=== PATIENT | male | born 1985 | race Caucasian/White ===

== ENCOUNTER 2020-06-04 15:15 | Outpatient (CLI) | payer OTHER, SELFPAY ==
[2020-06-04 16:20] LABS: Alanine Aminotransferase 38 U/L (16-63); Albumin Level 3.9 g/dL (3.4-5.0); Alkaline Phosphatase 125 U/L (46-116); Anion Gap 12.4 mmol/L (7-16); Aspartate Amino Transferase 36 U/L (15-37); Bilirubin,Total 0.8 mg/dL (0.00-1.00); Blood Urea Nitrogen 19 mg/dL (7-18); Calcium 8.9 mg/dL (8.5-10.1); Carbon Dioxide 27 mmol/L (21-32); Chloride 104 mmol/L (98-108); Estimated Glomerular Filt Rate > 60; Glucose 119 mg/dL (70-99); Magnesium 1.9 mg/dL (1.8-2.4); Osmolality Calculated 291 mOsm/kg (285-295); Potassium 4.4 mmol/L (3.5-5.1); Sodium 139 mmol/L (136-145); Total Protein 7.3 g/dL (6.4-8.2)
== END 2020-06-04 15:16 | disposition home or self-care (01) ==
LOC: CHSLAB 15:17
PROVIDERS: PCP Nurse Practitioner Family; Visit Provider Nurse Practitioner Family
DX: R42 Dizziness and giddiness (principal); E83.42 Hypomagnesemia
CPT/HCPCS: 36415; 80053; 83735

== ENCOUNTER 2020-06-11 11:11 | Emergency (ER) | payer OTHER, SELFPAY ==
--- NOTE | ~2020-06-11 | XR_ITS ---
EXAMINATION: XR chest 2V 06/11/2020 11:32 INDICATION: Chest pressure PROCEDURE: 2 view chest COMPARISON: Comparison to multiple prior studies sequentially, with oldest reviewed study dated 11/2016. FINDINGS: The lungs are clear. The cardiomediastinal silhouette is within normal limits. There are no pleural effusions. There is no pneumothorax suspected. IMPRESSION: 1: NO ACUTE CARDIOPULMONARY DISEASE. Reviewed, dictated and finalized at location B.
[2020-06-11 11:13] VITALS: BP 147/87; PULSE 76; RESP 18; TEMP 37.2; O2SAT 100
--- NOTE | 2020-06-11 11:13 | ECG_ITS ---
Measurements Intervals [place] Rate: 62 P: 12 [place]: 159 QRS: 44 QRSD: 98 T: 24 QT: 371 QTc: 377 Interpretive Statements SINUS RHYTHM WITH SINUS ARRHYTHMIA EARLY PRECORDIAL R/S TRANSITION BORDERLINE ECG Electronically Signed On 06-11-2020 11:39:45 CDT by Ramirez Sims D.O.
--- NOTE | 2020-06-11 11:13 | ED.CHESTPAIN ---
HPI - Chest Pain General Chief Complaint: Chest Pain Stated Complaint: chest tightning couldnt hardley breath Time Seen by Provider: 06/11/20 11:13 Source: patient Mode of arrival: ambulatory Limitations: no limitations History of Present Illness HPI narrative: 34-year-old man with a history of hypertension comes in today complaining of a 45 second episode of tightness in his chest neck and head, nausea while riding a mower this am. He has no symptoms at present. he denies prior similar episodes. He states he had an echo cardiogram about 7 years back does not recall why. complaint: chest discomfort (tightness) Onset (ago): minute(s) (30) Timing of current episode: episodic Prior episodes: No Onset: during exertion Pain location: substernal Pain radiation: neck (and head) Severity: moderate Quality: tightness Relieving factors: nothing Exacerbating factors: nothing Associated symptoms: nausea Treatment prior to arrival: none Risk Factors Coronary artery disease risk factors: hypertension Thoracic aortic dissection risk factors: none Related Data Home Medications Medication Instructions Recorded Confirmed lisinopril 10 mg PO DAILY 06/11/20 06/11/20 Allergies Allergy/AdvReac Type Severity Reaction Status Date / Time No Known Drug Allergies Allergy Mild Verified 06/04/20 12:07 Review of Systems Constitutional: Constitutional: Denies chills, Denies fever(s) and Denies weakness Eyes: Eyes: Denies change in vision and Denies photophobia ENT: Denies dysphagia, Denies nasal congestion and Denies sore throat Cardiovascular: Cardiovascular: Reports as per HPI Respiratory: Respiratory: Denies cough, Denies dyspnea and Denies wheezing Gastrointestinal: Gastrointestinal: Denies abdominal pain, Denies diarrhea, Reports nausea and Denies vomiting Musculoskeletal: Musculoskeletal: Denies back pain, Denies arthralgias, Denies joint swelling and Denies muscle cramps Integumentary/Breasts: Skin/Breast: Denies pruritus, Denies erythema and Denies rash Neurologic: Denies vertigo, Denies dizziness and Denies syncope Psychiatric: Psychiatric: Denies anxiety and Denies depression Endocrine: Endocrine: Denies polydipsia and Denies polyuria Hematologic/Lymphatic: Hematologic/Lymphatic: Denies easy bleeding and Denies easy bruising Allergic/Immunologic: Allergic/Immunologic: Denies lip swelling and Denies wheezing PMFSH Past Medical History Medical History Acute upper respiratory infection, unspecified GARRETT (generalized anxiety disorder) Hypertension Social History Social History Smoking status: Never smoker Tobacco type: smokeless tobacco Smokeless tobacco user: chewing tobacco Second hand tobacco smoke exposure: Yes Smoking end date: 11/29/11 Alcohol intake: current Exam Const: General: no acute distress and alert Nutritional Appearance: obese Orientation/consciousness: patient oriented x3 Limitations: no limitations HENMT: Head: normal to inspection Ears: external ears normal, TM's normal bilaterally and EAC's normal Face and sinus: normal facial exam Mouth: Yes moist mucous membranes Throat: posterior oropharynx normal Eyes: Conjunctivae: conjunctivae normal Pupils: Equal, round and reactive pupils present EOM: EOMs intact bilaterally Resp: Effort & Inspection: normal respiratory effort, not labored and no retractions Auscultation: clear to auscultation bilaterally, no crackles, no rales and no rhonchi Cardio: Rate: regular rate Rhythm: regular rhythm Heart sounds: no murmurs GI: Inspection: non-distended Other: nontender Skin: General skin exam: normal color, no jaundice and no pallor Rashes: no rashes Neuro: General: patient oriented x3, moves all extremities, no focal motor deficits and CN's II-XI intact bilaterally Speech: normal speech Gait exam (Neuro): Normal ga
[2020-06-11 11:15] VITALS: PULSE 76
[2020-06-11 11:32] LABS: Basophils Absolute Auto 0.07 K/mm3 (0.00-0.10); Basophils Percent Auto 0.8 % (0.0-1.0); Eosinophils Absolute Auto 0.08 K/mm3 (0.02-0.50); Eosinophils Percent Auto 0.9 % (1.0-6.0); Hematocrit 45.2 % (40.0-54.0); Immature Granulocyte Absolute 0.06 K/mm3 (0.00-0.00); Immature Granulocyte Percent A 0.7 % (0.0-0.0); Lymphocytes Absolute Auto 1.93 K/mm3 (1.10-4.50); Lymphocytes Percent Auto 21.6 % (18.0-42.0); Mean Corpuscular HGB Conc 35.4 g/dL (32.0-36.0); Mean Corpuscular Hemoglobin 31.1 pg (27.0-31.0); Mean Corpuscular Volume 87.8 fL (78.0-102.0); Mean Platelet Volume 10.5 fl (8.7-11.0); Monocytes Absolute Auto 0.77 K/mm3 (0.10-0.90); Monocytes Percent Auto 8.6 % (2.0-11.0); Neutrophils Percent Auto 67.4 % (50.0-70.0); Platelet Count Result 299 K/mm3 (150-420); Red Blood Count 5.15 M/mm3 (4.70-6.10); Red Cell Distribution Width 12.1 % (11.6-14.4)
[2020-06-11] MEDS: ASPIRIN 81 MG CHEWABLE TABLET 324 MG PO (11:35)
[2020-06-11 11:47] LABS: D Dimer 0.19 mg/L (0.19-0.50); INR 1.1; Partial Thromboplastin Time 26.8 SEC (22.3-31.6)
[2020-06-11 11:51] LABS: Alanine Aminotransferase 41 U/L (16-63); Albumin Level 3.9 g/dL (3.4-5.0); Alkaline Phosphatase 128 U/L (46-116); Aspartate Amino Transferase 18 U/L (15-37); Blood Urea Nitrogen 15 mg/dL (7-18); Calcium 9.3 mg/dL (8.5-10.1); Carbon Dioxide 28 mmol/L (21-32); Chloride 101 mmol/L (98-108); Estimated CRCL calculation 100 ml/min; Estimated Glomerular Filt Rate > 60; Glucose 91 mg/dL (70-99); Osmolality Calculated 282 mOsm/kg (285-295); Sodium 136 mmol/L (136-145); Total Protein 7.7 g/dL (6.4-8.2)
[2020-06-11 11:57] LABS: Troponin I < 0.02 ng/mL (0.00-0.056)
[2020-06-11 11:58] LABS: Magnesium 1.7 mg/dL (1.8-2.4)
[2020-06-11 12:08] LABS: Add Urine Microscopic? NO; Appearance Urine Clear (Clear); Bilirubin Urine Negative (Negative); Blood Urine Negative (Negative); Color Urine Yellow (Yellow); Glucose Urine UA Negative (Negative); Ketones Urine Negative (Negative); Leukocyte Esterase Ur Negative LEU/UL (Negative); Nitrate Urine Negative (Negative); Protein Urine Negative (Negative); Urobilinogen Urine 0.2 mg/dL (0.2-1.0); pH Urine 5.5 (5.0-8.0)
[2020-06-11 12:14] VITALS: BP 127/76; PULSE 61; RESP 20; O2SAT 96
[2020-06-11 12:22] LABS: Amphetamine Screen Urine Negative (Negative); Barbiturate Screen Urine Negative (Negative); Benzodiazepines Screen Urine Negative (Negative); Cannabinoid Screen Urine Negative (Negative); Cocaine Screen Urine Negative (Negative); Methadone Screen Urine Negative (Negative); Opiate Screen Urine Negative (Negative); Phencyclidine Screen Urine Negative (Negative)
[2020-06-11 13:15] VITALS: BP 118/69; PULSE 70; RESP 18; O2SAT 96
== END 2020-06-11 13:21 | disposition home or self-care (01) ==
PROVIDERS: Emergency Provider Emergency Medicine; PCP Nurse Practitioner Family
DX: R07.9 Chest pain, unspecified (principal)
CPT/HCPCS: 36415; 71046; 80053; 80307; 81003; 83735; 84484; 85025; 85380; 85610; 85730; 93005; 99284; A9270

== ENCOUNTER 2021-03-14 14:59 | Emergency (ER) | payer OTHER, SELFPAY ==
--- NOTE | 2021-03-14 15:09 | ED.WEAKNESS ---
HPI - Weakness General Chief complaint: Weakness Stated complaint: sluggish,trouble breathing Time Seen by Provider: 03/14/21 15:09 Source: patient Mode of arrival: ambulatory Limitations: no limitations History of Present Illness HPI Narrative: Patient states he has been feeling generally sluggish. He denies any new medications. He denies any other symptoms fever chills nausea vomiting diarrhea constipation black tarry stools chest pain shortness of breath. The only thing he mention was may be a swollen lymph node in his right neck but no sore throat no fever. Complaint: generalized weakness Onset (ago): day(s) (2) Duration: intermittent Location: generalized Migration: none Severity: moderate Relieving factors: none Exacerbating factors: exertion Associated symptoms: denies other symptoms Related Data Home Medications Medication Instructions Recorded Confirmed hydroxyzine HCl 50 mg tablet 50 mg PO QID PRN 02/19/21 03/14/21 Allergies Allergy/AdvReac Type Severity Reaction Status Date / Time No Known Drug Allergies Allergy Mild Unknown Verified 02/19/21 17:07 Review of Systems Review of Systems: All systems reviewed & are unremarkable except as noted in HPI and below PMFSH Past Medical History Medical History (Updated 03/14/21 @ 16:53 by Don Abbott MD) Acute upper respiratory infection, unspecified GARRETT (generalized anxiety disorder) Hypertension Social History Social History Smoking status: Former smoker Tobacco type: smokeless tobacco Smokeless tobacco user: chewing tobacco Second hand tobacco smoke exposure: Yes Smoking end date: 11/29/11 Alcohol intake: current Exam Const: General: healthy appearing and no acute distress Nutritional Appearance: well nourished Orientation/consciousness: patient oriented x3 HENMT: Head: normal to inspection Ears: external ears normal General nose exam: Normal external nose present and Normal nares present Face and sinus: normal facial exam Mouth: Yes moist mucous membranes Throat: posterior oropharynx normal Eyes: Conjunctivae: conjunctivae normal Pupils: Equal, round and reactive pupils present EOM: EOMs intact bilaterally Neck: Neck: normal visual inspection and lymphadenopathy right anterior cervical soft, mobile and tender (mild) Resp: Effort & Inspection: normal respiratory effort Auscultation: clear to auscultation bilaterally, no crackles, no rales, no rhonchi and no wheezes Cardio: Rate: regular rate Rhythm: regular rhythm GI: GI Palp: Yes Soft to palpation and No Tenderness to palpation present (GI) Auscultation: normal bowel sounds Back/Spine/Pelvis: Cervical Spine: cervical ROM normal Thoracic/Lumbar Spine: thoraco-lumbar ROM normal Skin: General skin exam: normal color Neuro: General: patient oriented x3, moves all extremities and no focal motor deficits Speech: normal speech Gait exam (Neuro): Normal gait present Extrem: General: normal to inspection and no clubbing, cyanosis or edema Psych: Appearance: grossly normal and well kempt Mental Status: mental status grossly normal Attitude: cooperative Thought content: Yes Normal thought content present Course Vital Signs Vital signs: Vital Signs Temperature 36.8 C 03/14/21 15:15 Pulse Rate 90 03/14/21 15:15 Respiratory Rate 16 03/14/21 15:15 Blood Pressure 127/80 03/14/21 15:15 Pulse Oximetry 100 03/14/21 15:15 Temperature 36.1 C L 03/14/21 16:56 Pulse Rate 78 03/14/21 16:56 Respiratory Rate 20 03/14/21 16:56 Blood Pressure 122/80 03/14/21 16:56 Pulse Oximetry 98 03/14/21 16:56 MDM - Weakness Differential Diagnosis Differential diagnosis: Likely hypoglycemia, hypothyroidism, sepsis and dehydration Lab Data Attestation: I reviewed the patient's lab results. Result diagrams: 03/14/21 15:32 03/14/21 15:32 Labs: Lab Results 03/14/21 0
[2021-03-14 15:15] VITALS: BP 127/80; PULSE 90; RESP 16; TEMP 36.8; O2SAT 100
[2021-03-14 15:40] LABS: Basophils Absolute Auto 0.08 K/mm3 (0.00-0.10); Basophils Percent Auto 0.6 % (0.0-1.0); Eosinophils Absolute Auto 0.09 K/mm3 (0.02-0.50); Eosinophils Percent Auto 0.7 % (1.0-6.0); Hematocrit 46.4 % (40.0-54.0); Hemoglobin 15.8 g/dL (14.0-18.0); Immature Granulocyte Absolute 0.09 K/mm3 (0.00-0.00); Immature Granulocyte Percent A 0.7 % (0.0-0.0); Lymphocytes Absolute Auto 2.05 K/mm3 (1.10-4.50); Lymphocytes Percent Auto 16.4 % (18.0-42.0); Mean Corpuscular HGB Conc 34.1 g/dL (32.0-36.0); Mean Corpuscular Hemoglobin 29.9 pg (27.0-31.0); Mean Corpuscular Volume 87.9 fL (78.0-102.0); Mean Platelet Volume 10.7 fl (8.7-11.0); Monocytes Absolute Auto 1.14 K/mm3 (0.10-0.90); Monocytes Percent Auto 9.1 % (2.0-11.0); Neutrophils Absolute Auto 9.1 K/mm3 (1.7-7.2); Neutrophils Percent Auto 72.5 % (50.0-70.0); Platelet Count Result 335 K/mm3 (150-420); Red Blood Count 5.28 M/mm3 (4.70-6.10); White Blood Count 12.5 K/mm3 (4.8-10.8)
[2021-03-14 15:41] LABS: Add Urine Microscopic? YES; Appearance Urine Clear (Clear); Bilirubin Urine Negative (Negative); Blood Urine Negative (Negative); Color Urine Yellow (Yellow); Glucose Urine UA Negative (Negative); Ketones Urine Trace (Negative); Leukocyte Esterase Ur Negative LEU/UL (Negative); Nitrate Urine Negative (Negative); Protein Urine Negative (Negative); Specific Grav Ur 1.025 (1.010-1.020)
[2021-03-14 15:46] LABS: Bacteria Urine 3+ /hpf; RBC Urine 0-2 /hpf (0-2); Squamous Epithelial Cell Urine None seen /hpf (Few); WBC Urine 0-3 /hpf (0-3)
[2021-03-14 15:47] LABS: Mucus Urine Heavy /lpf
[2021-03-14 15:57] LABS: Amphetamine Screen Urine Negative (Negative); Barbiturate Screen Urine Negative (Negative); Benzodiazepines Screen Urine Negative (Negative); Cannabinoid Screen Urine Negative (Negative); Cocaine Screen Urine Negative (Negative); Methadone Screen Urine Negative (Negative); Opiate Screen Urine Negative (Negative); Phencyclidine Screen Urine Negative (Negative)
[2021-03-14 16:05] LABS: Alanine Aminotransferase 54 U/L (16-63); Albumin Level 4.2 g/dL (3.4-5.0); Alkaline Phosphatase 110 U/L (46-116); Anion Gap 8 mmol/L (8-16); Aspartate Amino Transferase 24 U/L (15-37); Bilirubin,Total 1.5 mg/dL (0.00-1.00); Blood Urea Nitrogen 23 mg/dL (7-18); Calcium 9.1 mg/dL (8.5-10.1); Carbon Dioxide 29 mmol/L (21-32); Chloride 101 mmol/L (98-108); Estimated CRCL calculation 73 ml/min; Estimated Glomerular Filt Rate 51; Glucose 60 mg/dL (70-99); Osmolality Calculated 287 mOsm/kg (285-295); Sodium 138 mmol/L (136-145); Thyroid Stimulating Hormone 1.31 uIU/mL (0.36-3.74); Total Protein 7.9 g/dL (6.4-8.2)
--- NOTE | 2021-03-14 16:48 | PC.NURSE ---
glucose check done, results: 91
[2021-03-14 16:49] LABS: Glucose Point of Care 91 (65-105)
[2021-03-14 16:56] VITALS: BP 122/80; PULSE 78; RESP 20; TEMP 36.1; O2SAT 98
== END 2021-03-14 16:57 | disposition home or self-care (01) ==
PROVIDERS: Emergency Provider Emergency Medicine; PCP Nurse Practitioner Family
DX: E16.2 Hypoglycemia, unspecified (principal)
CPT/HCPCS: 36415; 80053; 80307; 81001; 82948; 83735; 84443; 85025; 99282; 99283

== ENCOUNTER 2021-04-30 14:37 | Outpatient (CLI) | payer OTHER, SELFPAY ==
--- NOTE | 2021-05-05 12:44 | WPDHOLTEREM ---
Holter/Event Monitor Holter/Event Monitor Date of procedure: 04/30/21 Procedure Type: 48 hour holter monitor Indications: Dizziness Conclusion: 1. 48 hour holter monitor on 04/30/21. 2. Underlying rhythm is sinus rhythm. HR range 40-171 bpm; average HR 84 bpm. 3. There are 41 premature supraventricular complexes and 1 supraventricular couplet. No supraventricular tachycardia. 4. There are 862 premature ventricular complexes, 15 ventricular couplets, 2 ventricular triplets, 56 ventricular bigeminy and 15 ventricular trigeminy. No ventricular tachycardia. 5. No sinoatrial or atrioventricular blocks. No significant pauses greater than 2 seconds. At 05:04 he was is in sinus rhythm at 47 bpm with change in QRS morphology to LBBB for 3 consecutive beats. 6. Patient reports symptoms of lightheadedness and face/ear on fire which demonstrate sinus tachycardia, HR range 112-124 bpm.
== END 2021-04-30 14:38 | disposition home or self-care (01) ==
LOC: CHSCARD 14:41
PROVIDERS: PCP Nurse Practitioner Family; Visit Provider Nurse Practitioner Family
DX: R42 Dizziness and giddiness (principal)
CPT/HCPCS: 93225; 93226

== ENCOUNTER 2021-08-27 19:00 | Emergency (ER) | payer OTHER, SELFPAY ==
--- NOTE | ~2021-08-27 | XR_ITS ---
EXAMINATION: XR thoracic spine 3V DATE: 08/27/2021 20:54 INDICATION: Thoracic back pain TECHNIQUE: AP, lateral and lateral swimmer's views of the thoracic spine were obtained. COMPARISON: Chest radiograph dated 06/11/2020 FINDINGS: There is chronic anterior wedging of the T11 vertebral body. No acute fracture, dislocation , or subluxation is identified. Bone alignment is normal. There is mild loss of intervertebral disc s pace height at T11-12. IMPRESSION: 1. No acute osseous abnormality. 2. Chronic anterior wedging at T11. Reviewed, dictated and finalized at location A.
--- NOTE | ~2021-08-27 | CT_ITS ---
EXAMINATION: CT cervical spine wo con DATE: 08/27/2021 20:54 INDICATION: Neck pain TECHNIQUE: Computed tomography (CT) of the cervical spine was performed without intravenous contrast. The dose-length product (DLP) was 451.86 mGy-cm. Automated exposure control and iterative reconstruc tion technique were employed. COMPARISON: None FINDINGS: There is no fracture, dislocation, or subluxation. The vertebral body heights, alignment, a nd intervertebral disc spaces are normal. The paravertebral soft tissues are unremarkable. The odonto id is intact. IMPRESSION: 1. No acute osseous abnormality. Reviewed, dictated and finalized at location A.
--- NOTE | 2021-08-27 20:17 | ED.FALL ---
HPI - Fall General Chief Complaint: Fall Stated Complaint: neck and back pain Time Seen by Provider: 08/27/21 20:17 Source: patient Mode of arrival: ambulatory Limitations: no limitations History of Present Illness HPI Narrative: 35-year-old man with a history of hypertension comes in today complaining of neck and mid back pain that started this morning after he slipped on some wet grass and fell on his back. Patient states that he did not lose consciousness and he has had no nausea or vomiting. He states this morning he had some numbness in his left hand which resolved. He denies weakness in his extremities. He denies prior neck or back injuries, fractures or surgeries. complaint: fall Onset (ago): hour(s) (approx 8) Fall from: standing Fall witnessed: yes, by bystander Place fall occurred: work Loss of consciousness: none Context: tripped/slipped Location of injury: neck and back Quality: sharp and aching Associated symptoms (after fall): neck pain Related Data Home Medications Medication Instructions Recorded Confirmed hydroxyzine HCl 50 mg tablet 50 mg PO QID PRN 02/19/21 08/27/21 omeprazole See Rx Instructions .ROUTE .COMPLEX 08/27/21 08/27/21 Allergies Allergy/AdvReac Type Severity Reaction Status Date / Time No Known Drug Allergies Allergy Mild Unknown Verified 08/25/21 15:26 Review of Systems Review of Systems: All systems reviewed & are unremarkable except as noted in HPI and below Constitutional: Constitutional: Denies chills and Denies fever(s) Eyes: Eyes: Denies change in vision and Denies photophobia ENT: Denies nasal congestion and Denies sore throat Cardiovascular: Cardiovascular: Denies chest pain and Denies radiating jaw, neck or arm pain Respiratory: Respiratory: Denies cough, Denies dyspnea and Denies wheezing Gastrointestinal: Gastrointestinal: Denies abdominal pain, Denies nausea and Denies vomiting Musculoskeletal: Musculoskeletal: Denies back pain, Denies arthralgias and Denies joint swelling Neurologic: Denies vertigo, Denies dizziness, Denies syncope, Denies focal weakness and Reports numbness (For short time and left hand) Hematologic/Lymphatic: Hematologic/Lymphatic: Denies easy bleeding and Denies easy bruising PMF Past Medical History Medical History (Updated 08/27/21 @ 21:20 by Dayday Davis MD) Acute upper respiratory infection, unspecified GARRETT (generalized anxiety disorder) Hypertension Social History Social History Smoking status: Never smoker Tobacco type: smokeless tobacco Smokeless tobacco user: chewing tobacco Second hand tobacco smoke exposure: Yes Smoking end date: 11/29/11 Alcohol intake: current Exam Const: General: healthy appearing and alert Orientation/consciousness: patient oriented x3 Limitations: no limitations Other: Mild acute distress. HENMT: Head: normal to inspection Ears: external ears normal, TM's normal bilaterally and EAC's normal General nose exam: Normal nares present Face and sinus: normal facial exam Mouth: Yes moist mucous membranes Throat: posterior oropharynx normal Eyes: Conjunctivae: conjunctivae normal Pupils: Equal, round and reactive pupils present EOM: EOMs intact bilaterally Resp: Effort & Inspection: normal respiratory effort and not labored Auscultation: clear to auscultation bilaterally, no rales, no rhonchi and no wheezes Cardio: Rate: regular rate Rhythm: regular rhythm Heart sounds: no murmurs Back/Spine/Pelvis: Other: Mild tenderness the midline of the upper back and cervical spine. No abnormal contour, step-off, swelling. Skin: General skin exam: normal color, no jaundice and no pallor Rashes: no rashes Neuro: General: patient oriented x3, moves all extremities, no focal motor deficits and CN's II-XI intact bilaterally Speech: normal speech Gait exam (Neuro): Normal gait present Other: Normal strength in upper and lower ext
[2021-08-27 20:21] VITALS: BP 131/74; PULSE 90; RESP 20; TEMP 36.4; O2SAT 98
[2021-08-27 21:37] VITALS: BP 125/70; PULSE 80; RESP 18; TEMP 36.6; O2SAT 98
== END 2021-08-27 21:41 | disposition home or self-care (01) ==
PROVIDERS: Emergency Provider Emergency Medicine; PCP Family Medicine
DX: S16.1XXA Strain of muscle, fascia and tendon at neck level, initial encounter (principal); S39.012A Strain of muscle, fascia and tendon of lower back, initial encounter; I10 Essential (primary) hypertension; W01.0XXA Fall on same level from slipping, tripping and stumbling without subsequent striking against object, initial encounter
CPT/HCPCS: 72072; 72125; 99283; 99284

== ENCOUNTER 2021-12-09 02:59 | Emergency (ER) | payer OTHER, SELFPAY ==
[2021-12-09 03:17] VITALS: BP 126/74; PULSE 88; RESP 18; TEMP 38.7; O2SAT 98
--- NOTE | 2021-12-09 03:20 | ED.URI ---
HPI - URI/Sore Throat General Chief Complaint: Unspecified Stated Complaint: SORE THROAT Source: patient and RN notes reviewed Mode of arrival: ambulatory Limitations: no limitations History of Present Illness MD elicited complaint: fever, cough and sore throat Onset (ago): day(s) (2) Consistency: constant Severity: moderate Able to tolerate fluids by mouth: Yes Exacerbating factors: nothing Relieving factors: nothing Context: sick contacts ( children positive for COVID on 12/04/2021) Associated symptoms: myalgias and headache Treatments prior to arrival: acetaminophen Related Data Home Medications Medication Instructions Recorded Confirmed hydroxyzine HCl 50 mg tablet 50 mg PO QID PRN 02/19/21 08/27/21 omeprazole See Rx Instructions .ROUTE .COMPLEX 08/27/21 08/27/21 Allergies Allergy/AdvReac Type Severity Reaction Status Date / Time No Known Drug Allergies Allergy Mild Unknown Verified 08/25/21 15:26 Review of Systems Review of Systems: All systems reviewed & are unremarkable except as noted in HPI and below PMFSH Past Medical History Medical History (Updated 12/09/21 @ 03:41 by Don Abbott MD) Acute upper respiratory infection, unspecified GARRETT (generalized anxiety disorder) Hypertension Obesity Surgical History Surgical History (Updated 12/09/21 @ 03:21 by Don Abbott MD) No pertinent past surgical history Social History Social History Smoking status: Never smoker Tobacco type: smokeless tobacco Smokeless tobacco user: chewing tobacco Second hand tobacco smoke exposure: Yes Smoking end date: 11/29/11 Alcohol intake: current Exam Const: General: healthy appearing, no acute distress and alert Nutritional Appearance: well nourished Orientation/consciousness: patient oriented x3 HENMT: Head: normal to inspection Ears: external ears normal Eyes: Conjunctivae: conjunctivae normal Pupils: Equal, round and reactive pupils present EOM: EOMs intact bilaterally Neck: Neck: normal visual inspection Resp: Effort & Inspection: normal respiratory effort Auscultation: clear to auscultation bilaterally Cardio: Rate: regular rate Rhythm: regular rhythm GI: GI Palp: Yes Soft to palpation and No Tenderness to palpation present (GI) Auscultation: normal bowel sounds Back/Spine/Pelvis: Cervical Spine: cervical ROM normal Thoracic/Lumbar Spine: thoraco-lumbar ROM normal Skin: General skin exam: normal color Rashes: no rashes Neuro: General: patient oriented x3, moves all extremities, no meningeal signs, no focal motor deficits and CN's II-XI intact bilaterally Speech: normal speech Gait exam (Neuro): Normal gait present Extrem: General: normal to inspection and no clubbing, cyanosis or edema Psych: Appearance: grossly normal and well kempt Mental Status: mental status grossly normal Affect: normal affect and Anxious affect present Attitude: cooperative Thought content: Yes Normal thought content present Course Vital Signs Vital signs: Vital Signs Temperature 38.7 C H 12/09/21 03:17 Pulse Rate 88 12/09/21 03:17 Respiratory Rate 18 12/09/21 03:17 Blood Pressure 126/74 12/09/21 03:17 Pulse Oximetry 98 12/09/21 03:17 Temperature 37.8 C H 12/09/21 04:09 Pulse Rate 88 12/09/21 04:09 Respiratory Rate 18 12/09/21 04:09 Blood Pressure 138/82 12/09/21 04:09 Pulse Oximetry 100 12/09/21 04:09 MDM - URI/Sore Throat Lab Data Labs: Lab Results 12/09/21 Range/Units 03:08 SARS-CoV-2 RNA (RT-PCR) Positive A (Negative) Discharge Plan Discharge Clinical Impression: COVID-19 Patient Disposition: Home, Self-Care Condition: Stable Instructions: COVID-19 (Coronavirus Disease 2019) (ED) Additional Instructions: quarantine for 10 days. Call back to the hospital to see if you can get monoclonal antibodies infusion either here or at [facility]. Prescription
[2021-12-09 03:55] LABS: SARS-CoV-2 RNA PCR Positive (Negative)
[2021-12-09 04:09] VITALS: BP 138/82; PULSE 88; RESP 18; TEMP 37.8; O2SAT 100
== END 2021-12-09 04:12 | disposition home or self-care (01) ==
PROVIDERS: Emergency Provider Emergency Medicine; PCP Family Medicine
DX: U07.1 COVID-19 (principal)
CPT/HCPCS: 99282; 99283; C9803; U0003; U0005

== ENCOUNTER 2021-12-10 07:57 | Outpatient (RCR) | payer OTHER, SELFPAY ==
[2021-12-10 10:25] VITALS: BP 130/82; PULSE 62; RESP 20; TEMP 36.2; O2SAT 100
[2021-12-10] MEDS: FAMOTIDINE 20 MG TABLET PO (10:32)
[2021-12-10] MEDS: diphenhydrAMINE HCl CAP 25 MG CAPSULE PO (10:32)
[2021-12-10 11:54] VITALS: BP 121/75; PULSE 58; O2SAT 100
== END 2021-12-10 17:00 ==
LOC: AMCINF 07:57
PROVIDERS: PCP Emergency Medicine; Visit Provider Internal Medicine Hematology & Oncology
DX: U07.1 COVID-19 (principal)
CPT/HCPCS: A9270; M0243; Q0244

== ENCOUNTER 2021-12-12 12:04 | Emergency (ER) | payer OTHER, SELFPAY ==
--- NOTE | ~2021-12-12 | XR_ITS ---
EXAMINATION: XR chest 1V portable DATE: 12/12/2021 13:53 INDICATION: Dizziness. COVID-19 positive. TECHNIQUE: A single frontal view of the chest was obtained. COMPARISON: Chest 2 views 06/11/2020 FINDINGS: The chest demonstrates clear lungs without pneumonia, pleural effusion, or pneumothorax. Th e heart size is normal. IMPRESSION: 1. No acute cardiopulmonary disease. Reviewed, dictated and finalized at location B. [employer]NAL OPERATIONS MANAGER
--- NOTE | ~2021-12-12 | CT_ITS ---
EXAMINATION: CT brain wo con DATE: 12/12/2021 13:52 INDICATION: Dizziness. TECHNIQUE: Computed tomography (CT) of the head was performed without intravenous contrast. The mA wa s adjusted according to patient size. Iterative reconstruction technique was employed. The dose-lengt h product was 605.33 mGy-cm. COMPARISON: Head CT 05/30/2019 FINDINGS: There is no intracranial hemorrhage, acute infarction, or abnormal intracranial mass lesion . The ventricles are normal in size. The orbits are normal. There is minimal mucosal thickening in th e paranasal sinuses. The mastoid air cells are normal. IMPRESSION: 1. Normal brain. Reviewed, dictated and finalized at location B. MOLDER IMPRESSION: 1. Normal brain.
[2021-12-12 12:27] VITALS: BP 129/71; PULSE 60; RESP 16; TEMP 36.3; O2SAT 98
[2021-12-12 13:41] LABS: Basophils Absolute Auto 0.03 K/mm3 (0.00-0.10); Basophils Percent Auto 0.6 % (0.0-1.0); Eosinophils Absolute Auto 0.07 K/mm3 (0.02-0.50); Eosinophils Percent Auto 1.4 % (1.0-6.0); Hematocrit 47.8 % (40.0-54.0); Hemoglobin 16.8 g/dL (14.0-18.0); Immature Granulocyte Absolute 0.02 K/mm3 (0.00-0.00); Immature Granulocyte Percent A 0.4 % (0.0-0.0); Lymphocytes Absolute Auto 1.15 K/mm3 (1.10-4.50); Lymphocytes Percent Auto 22.5 % (18.0-42.0); Mean Corpuscular HGB Conc 35.1 g/dL (32.0-36.0); Mean Corpuscular Hemoglobin 30.9 pg (27.0-31.0); Mean Platelet Volume 10.7 fl (8.7-11.0); Monocytes Absolute Auto 0.65 K/mm3 (0.10-0.90); Monocytes Percent Auto 12.7 % (2.0-11.0); Neutrophils Absolute Auto 3.2 K/mm3 (1.7-7.2); Neutrophils Percent Auto 62.4 % (50.0-70.0); Platelet Count Result 295 K/mm3 (150-420); Red Blood Count 5.43 M/mm3 (4.70-6.10); White Blood Count 5.1 K/mm3 (4.8-10.8)
[2021-12-12 13:43] LABS: Add Urine Microscopic? NO; Appearance Urine Clear (Clear); Bilirubin Urine Negative (Negative); Blood Urine Negative (Negative); Color Urine Light Yellow (Yellow); Glucose Urine UA Negative (Negative); Ketones Urine Negative (Negative); Leukocyte Esterase Ur Negative (Negative); Nitrate Urine Negative (Negative); Protein Urine Negative (Negative); Specific Grav Ur 1.015 (1.010-1.020); Urobilinogen Urine 0.2 mg/dL (0.2-1.0)
[2021-12-12 13:51] LABS: Amphetamine Screen Urine Negative (Negative); Barbiturate Screen Urine Negative (Negative); Benzodiazepines Screen Urine Negative (Negative); Cannabinoid Screen Urine Negative (Negative); Cocaine Screen Urine Negative (Negative); Methadone Screen Urine Negative (Negative); Opiate Screen Urine Negative (Negative); Phencyclidine Screen Urine Negative (Negative)
[2021-12-12 14:00] LABS: Alanine Aminotransferase 60 U/L (16-63); Albumin Level 3.8 g/dL (3.4-5.0); Alkaline Phosphatase 84 U/L (46-116); Anion Gap 11 mmol/L (8-16); Aspartate Amino Transferase 22 U/L (15-37); Bilirubin,Total 0.8 mg/dL (0.00-1.00); Blood Urea Nitrogen 16 mg/dL (7-18); Calcium 8.7 mg/dL (8.5-10.1); Carbon Dioxide 25 mmol/L (21-32); Chloride 102 mmol/L (98-108); Estimated CRCL calculation 99 ml/min; Estimated Glomerular Filt Rate > 60; Glucose 114 mg/dL (70-99); Osmolality Calculated 288 mOsm/kg (285-295); Potassium 4.3 mmol/L (3.5-5.1); Sodium 138 mmol/L (136-145); Total Protein 7.2 g/dL (6.4-8.2); Troponin I 7.6 ng/L (0.00-60.4)
[2021-12-12 14:02] LABS: Lactic Acid Reflex 0.5 mmol/L (0.4-2.0)
[2021-12-12 14:03] LABS: Ethanol < 3 mg/dL (0-6)
[2021-12-12] MEDS: PANTOPRAZOLE SODIUM IV 40 MG VIAL IV PUSH (14:13)
[2021-12-12] MEDS: ONDANSETRON INJ 4 MG/2 ML VIAL IV PUSH (14:13)
[2021-12-12] MEDS: SODIUM CHLORIDE 0.9% IV 1,000 ML 999 ML IV CONT (14:13)
[2021-12-12 14:14] VITALS: BP 122/64; PULSE 60; RESP 16; O2SAT 98
--- NOTE | 2021-12-12 15:01 | ED.GENADULT ---
HPI - General Adult General Chief complaint: Unspecified Stated complaint: Covid +/has infusion and doesn't feel right Time Seen by Provider: 12/12/21 12:08 Source: patient and RN notes reviewed Limitations: no limitations History of Present Illness MD complaint: mild occasional dizziness, nausea and vomiting Onset (ago): day(s) (2) Location: head and abdomen Radiation: non-radiation Severity: mild Severity scale (1-10): 3 Pain Consistency: other (pain-free in the ED) Relieving factors: none Exacerbating factors: movement Associated symptoms: nausea/vomiting Treatments prior to arrival: none Related Data Home Medications Medication Instructions Recorded Confirmed hydroxyzine HCl 50 mg tablet 50 mg PO QID PRN 02/19/21 12/12/21 omeprazole See Rx Instructions .ROUTE .COMPLEX 08/27/21 12/12/21 Allergies Allergy/AdvReac Type Severity Reaction Status Date / Time No Known Drug Allergies Allergy Mild Unknown Verified 12/12/21 12:26 Review of Systems Review of Systems: All systems reviewed & are unremarkable except as noted in HPI and below Gastrointestinal: Gastrointestinal: Reports nausea and Reports vomiting Neurologic: Reports dizziness PMFSH Past Medical History Medical History Acute upper respiratory infection, unspecified Dizziness GARRETT (generalized anxiety disorder) Hypertension Obesity Surgical History Surgical History No pertinent past surgical history Social History Social History Smoking status: Never smoker Tobacco type: smokeless tobacco Smokeless tobacco user: chewing tobacco Second hand tobacco smoke exposure: Yes Smoking end date: 11/29/11 Alcohol intake: current Exam Const: General: cooperative, healthy appearing, no acute distress, alert and awake Nutritional Appearance: well nourished Orientation/consciousness: patient oriented x3 Limitations: no limitations HENMT: Head: normal to inspection, normocephalic and atraumatic Ears: hearing grossly normal bilaterally, external ears normal and TM's normal bilaterally General nose exam: Normal external nose present and Normal nares present Face and sinus: normal facial exam Mouth: Yes moist mucous membranes Throat: posterior oropharynx normal Eyes: General: appearance normal, both eyes and all related structures Eyelids: eyelids normal Conjunctivae: conjunctivae normal Sclera: sclerae normal Cornea: corneas normal Pupils: Equal, round and reactive pupils present EOM: EOMs intact bilaterally Neck: Neck: normal visual inspection, full ROM and no lymphadenopathy Chest: Chest palpation & inspection: normal inspection of the chest Resp: Effort & Inspection: normal respiratory effort and able to speak in complete sentences Auscultation: clear to auscultation bilaterally Percussion: percussion normal Cardio: Jugular venous distension: no JVD Palpation: normal PMI Rate: regular rate Rhythm: regular rhythm Heart sounds: S1 normal heart sound present Peripheral pulses: Peripheral pulses 2+ throughout GI: Inspection: normal to inspection GI Palp: No abdominal tenderness, Yes Soft to palpation and Yes Other GI palpation findings present (normal BS) Percussion: Yes normal to percussion Auscultation: normal bowel sounds : General: Yes no CVA tenderness Back/Spine/Pelvis: Back: no CVA tenderness Thoracic/Lumbar Spine: thoracic and lumbar spine normal to inspection Skin: General skin exam: normal color and no rashes or lesions noted Lesions: no lesions Rashes: no rashes Wounds: no wounds Hair: normal Nails: normal Neuro: General: oriented to person, patient oriented x3, Normal light touch and pain sensation, no meningeal signs and no focal motor deficits Cranial nerves: Yes CN's II-XII intact bilaterally, Yes Equal, round and reactive pupils present and Ye
[2021-12-12 15:06] VITALS: BP 130/102; PULSE 80; RESP 16; O2SAT 95
== END 2021-12-12 15:10 | disposition home or self-care (01) ==
PROVIDERS: Emergency Provider Emergency Medicine; PCP Family Medicine
DX: U07.1 COVID-19 (principal); R42 Dizziness and giddiness; B34.9 Viral infection, unspecified; I10 Essential (primary) hypertension
CPT/HCPCS: 36415; 70450; 71045; 80053; 80307; 81003; 83605; 84484; 85025; 93005; 96361; 96374; 96375; 99283; 99284; C9113; J2405; J7030

== ENCOUNTER 2021-12-28 11:27 | Emergency (ER) | payer OTHER, SELFPAY ==
--- NOTE | ~2021-12-28 | CT_ITS ---
EXAMINATION: CT cervical spine wo con DATE: 12/28/2021 13:14 INDICATION: Neck pain. Left arm numbness. TECHNIQUE: Computed tomography (CT) of the cervical spine was performed without intravenous contrast. Automated exposure control and iterative reconstruction technique were employed. The dose-length pro duct was 619.31 mGy-cm. COMPARISON: CT cervical spine 08/27/2021 FINDINGS: Bone alignment is normal. Vertebral body heights and intervertebral disc heights are normal . At C7-T1, there is mild bilateral facet joint osteoarthritis. No neural foraminal stenosis or centr al canal stenosis. IMPRESSION: 1. No fracture. 2. Mild bilateral facet joint osteoarthritis at C7-T1. Reviewed, dictated and finalized at location A. E SPECIALIST
--- NOTE | ~2021-12-28 | CT_ITS ---
EXAMINATION: CT brain wo con DATE: 12/28/2021 13:13 INDICATION: Neck pain. Left arm numbness. TECHNIQUE: Computed tomography (CT) of the head was performed without intravenous contrast. The mA wa s adjusted according to patient size. Iterative reconstruction technique was employed. The dose-lengt h product was 605.33 mGy-cm. COMPARISON: Head CT 12/12/2021 FINDINGS: There is no intracranial hemorrhage, acute infarction, or abnormal intracranial mass lesion . The ventricles are normal in size. The orbits are normal. There is mild mucosal thickening in the p aranasal sinuses. The mastoid air cells are normal. IMPRESSION: 1. Normal brain. Reviewed, dictated and finalized at location A. BURN IMPRESSION: 1. Normal brain.
[2021-12-28 11:50] VITALS: BP 114/95; PULSE 65; RESP 20; TEMP 36.4; O2SAT 98
--- NOTE | 2021-12-28 12:27 | ECG_ITS ---
Measurements Intervals [place] Rate: 59 P: 17 [place]: 167 QRS: 42 QRSD: 97 T: 31 QT: 379 QTc: 376 Interpretive Statements SINUS BRADYCARDIA WITH SINUS ARRHYTHMIA INCOMPLETE RIGHT BUNDLE BRANCH BLOCK ST ELEVATION IN ANTEROLAT/INF LEADS- PROBABLY EARLY REPOLARIZATION ABNORMALITY BORDERLINE ECG Electronically Signed On 12-29-2021 8:32:33 CHANNEL SUPERVISOR by Ramirez Sims D.O.
[2021-12-28] MEDS: KETOROLAC (*BKC) 60 MG/2 ML VIAL IM (12:55)
[2021-12-28] MEDS: ASPIRIN 325 MG ENTERIC TABLET PO (12:56)
[2021-12-28 13:16] LABS: Basophils Absolute Auto 0.06 K/mm3 (0.00-0.10); Basophils Percent Auto 0.8 % (0.0-1.0); Eosinophils Absolute Auto 0.07 K/mm3 (0.02-0.50); Hematocrit 45.9 % (40.0-54.0); Hemoglobin 15.5 g/dL (14.0-18.0); Immature Granulocyte Absolute 0.06 K/mm3 (0.00-0.00); Immature Granulocyte Percent A 0.8 % (0.0-0.0); Lymphocytes Absolute Auto 1.69 K/mm3 (1.10-4.50); Lymphocytes Percent Auto 23.5 % (18.0-42.0); Mean Corpuscular HGB Conc 33.8 g/dL (32.0-36.0); Mean Corpuscular Hemoglobin 30.1 pg (27.0-31.0); Mean Corpuscular Volume 89.1 fL (78.0-102.0); Mean Platelet Volume 10.9 fl (8.7-11.0); Monocytes Absolute Auto 0.64 K/mm3 (0.10-0.90); Monocytes Percent Auto 8.9 % (2.0-11.0); Neutrophils Absolute Auto 4.7 K/mm3 (1.7-7.2); Platelet Count Result 297 K/mm3 (150-420); Red Blood Count 5.15 M/mm3 (4.70-6.10); Red Cell Distribution Width 11.9 % (11.6-14.4); White Blood Count 7.2 K/mm3 (4.8-10.8)
[2021-12-28 13:35] LABS: Alanine Aminotransferase 61 U/L (16-63); Albumin Level 3.9 g/dL (3.4-5.0); Alkaline Phosphatase 95 U/L (46-116); Anion Gap 10 mmol/L (8-16); Aspartate Amino Transferase 23 U/L (15-37); Bilirubin,Total 1.1 mg/dL (0.00-1.00); Blood Urea Nitrogen 16 mg/dL (7-18); Calcium 8.8 mg/dL (8.5-10.1); Carbon Dioxide 27 mmol/L (21-32); Chloride 103 mmol/L (98-108); Estimated CRCL calculation 111 ml/min; Estimated Glomerular Filt Rate > 60; Glucose 90 mg/dL (70-99); Osmolality Calculated 291 mOsm/kg (285-295); Potassium 4.2 mmol/L (3.5-5.1); Sodium 140 mmol/L (136-145); Total Protein 7.1 g/dL (6.4-8.2); Troponin I 6.4 ng/L (0.00-60.4)
[2021-12-28 13:42] LABS: Lactic Acid Reflex 0.7 mmol/L (0.4-2.0)
--- NOTE | 2021-12-28 14:07 | ED.NECK ---
HPI - Neck Pain/Injury General Chief Complaint: Back Pain/Injury Stated Complaint: sharp throbbing pain in left back, heel and arm Time Seen by Provider: 12/28/21 11:29 Source: patient and RN notes reviewed Mode of arrival: ambulatory Limitations: no limitations History of Present Illness complaint: neck pain Onset (ago): hour(s) (8) Place: home Radiation: left lateral, left shoulder and left upper extremity Severity: mild Severity scale (1-10): 5 Quality: tingling Duration: constant Relieving factors: medication OTC/prescribed Exacerbating factors: movement of extremity and movement of neck Treatments prior to arrival: prescription analgesic Related Data Home Medications Medication Instructions Recorded Confirmed omeprazole See Rx Instructions .ROUTE .COMPLEX 08/27/21 12/28/21 Allergies Allergy/AdvReac Type Severity Reaction Status Date / Time No Known Drug Allergies Allergy Mild Unknown Verified 12/12/21 12:26 Review of Systems Review of Systems: All systems reviewed & are unremarkable except as noted in HPI and below Musculoskeletal: Musculoskeletal: Reports arthralgias PMFSH Past Medical History Medical History Acute upper respiratory infection, unspecified Dizziness GARRETT (generalized anxiety disorder) Hypertension Obesity Surgical History Surgical History No pertinent past surgical history Social History Social History Smoking status: Never smoker Tobacco type: smokeless tobacco Smokeless tobacco user: chewing tobacco Second hand tobacco smoke exposure: Yes Smoking end date: 11/29/11 Alcohol intake: current Exam Const: General: no acute distress and alert Nutritional Appearance: well nourished Orientation/consciousness: patient oriented x3 HENMT: Head: normal to inspection Ears: external ears normal and TM's normal bilaterally General nose exam: Normal external nose present and Normal nares present Mouth: Yes moist mucous membranes Eyes: Conjunctivae: conjunctivae normal Pupils: Equal, round and reactive pupils present EOM: EOMs intact bilaterally Neck: Neck: normal visual inspection and no meningeal signs Chest: Chest palpation & inspection: normal inspection of the chest Resp: Effort & Inspection: normal respiratory effort Auscultation: clear to auscultation bilaterally Cardio: Rate: regular rate Rhythm: regular rhythm GI: GI Palp: Yes Soft to palpation and No Tenderness to palpation present (GI) Auscultation: normal bowel sounds : General: Yes bladder normal to palpation Testes: Testes normal Back/Spine/Pelvis: Back: no CVA tenderness Skin: General skin exam: normal color Rashes: no rashes Neuro: General: patient oriented x3, moves all extremities and no meningeal signs Extrem: General: normal to inspection and no pedal edema Psych: Appearance: grossly normal and well kempt Mental Status: mental status grossly normal Affect: normal affect Attitude: cooperative Thought content: Yes Normal thought content present Course Course Emergency Course: Pt was stable and ambulatory Reevaluation(s) Reevaluation #1: VSS. Date: 12/28/21 Time: 12:28 Vital Signs Vital signs: Vital Signs Temperature 36.4 C 12/28/21 11:50 Pulse Rate 65 12/28/21 11:50 Respiratory Rate 20 12/28/21 11:50 Blood Pressure 114/95 H 12/28/21 11:50 Pulse Oximetry 98 12/28/21 11:50 Temperature 36.4 C 12/28/21 11:50 Pulse Rate 65 12/28/21 11:50 Respiratory Rate 20 12/28/21 11:50 Blood Pressure 114/95 H 12/28/21 11:50 Pulse Oximetry 98 12/28/21 11:50 MDM - Neck Pain/Injury Differential Diagnosis Differential diagnosis: Likely disc disorder of cervical region, whiplash injury to neck, closed subluxation of cervical spine, cervical spondylosis and strain of neck muscle Medical [facility]
[2021-12-28 14:28] VITALS: BP 116/94; PULSE 84; RESP 20; TEMP 36.4; O2SAT 98
== END 2021-12-28 14:34 | disposition home or self-care (01) ==
PROVIDERS: Emergency Provider Emergency Medicine; PCP Family Medicine
DX: M47.812 Spondylosis without myelopathy or radiculopathy, cervical region (principal); M54.12 Radiculopathy, cervical region
CPT/HCPCS: 36415; 70450; 72125; 80053; 83605; 84484; 85025; 93005; 96372; 99283; 99284; A9270; J1885

== ENCOUNTER 2022-05-02 09:30 | Emergency (ER) | payer OTHER, SELFPAY ==
[2022-05-02] VITALS (11 sets, daily range): BP systolic 103–129; BP diastolic 61–74; PULSE 50–62; RESP 12–20; TEMP 36.3; O2SAT 96–100
--- NOTE | ~2022-05-02 | XR_ITS ---
EXAMINATION: XR chest 1V portable INDICATION: Shortness of breath TECHNIQUE: Portable AP chest at 1032 hours COMPARISON: 12/12/2011 FINDINGS: The lungs are free of acute opacities. There is no pleural effusion or pneumothorax. The ca rdiomediastinal silhouette is normal. IMPRESSION: 1. No acute cardiopulmonary abnormality. Reviewed, dictated and finalized at location A.
--- NOTE | 2022-05-02 09:46 | ED.SOB ---
HPI - SOB/Dyspnea General Chief Complaint: Shortness of Breath/Dyspnea Stated Complaint: chest heavy,trouble breathing Time Seen by Provider: 05/02/22 09:46 Source: patient Mode of arrival: ambulatory Limitations: no limitations History of Present Illness HPI Narrative: 36-year-old male, ex-smoker with a history of GARRETT, hypertension, COVID 6 months ago presents to the 1 day history of -- shortness of breath. He has episodes of shortness of rest at rest. No relation to exercise /activity No cough or sputum production. No fever. No chest pain MD elicited complaint: shortness of breath and anxiety Onset (ago): day(s) ( started 1 day ago) Context: anxiety Timing: intermittent Severity: mild Exacerbating factors: nothing Relieving factors: nothing Associated symptoms: denies other symptoms Treatment prior to arrival: none Related Data Home oxygen amount: none Home Medications Medication Instructions Recorded Confirmed omeprazole 40 mg capsule,delayed See Rx Instructions .Route .COMPLEX 08/27/21 05/02/22 release Allergies Allergy/AdvReac Type Severity Reaction Status Date / Time No Known Drug Allergies Allergy Mild Unknown Verified 05/02/22 09:42 Review of Systems Review of Systems: All systems reviewed & are unremarkable except as noted in HPI and below Constitutional: Constitutional: Reports as per HPI and Reports no additional constitutional complaints Eyes: Eyes: Reports as per HPI and Reports no additional eye complaints ENT: Reports system reviewed and no additional complaints, except as documented Cardiovascular: Cardiovascular: Reports as per HPI and Reports no additional cardiovascular complaints Respiratory: Respiratory: Reports as per HPI, Reports no additional respiratory complaints and Reports dyspnea Gastrointestinal: Gastrointestinal: Reports as per HPI and Reports no additional gastrointestinal complaints Genitourinary: Genitourinary: Reports no additional male genitourinary complaints and Reports as per HPI Musculoskeletal: Musculoskeletal: Reports no additional musculoskeletal complaints and Reports as per HPI Integumentary/Breasts: Skin/Breast: Reports system reviewed and no additional complaints, except as docu and Reports as per HPI Neurologic: Reports system reviewed and no additional complaints, except as documented and Reports as per HPI Psychiatric: Psychiatric: Reports no additional psychiatric complaints and Reports as per HPI Endocrine: Endocrine: Reports no additional endocrine complaints and Reports as per HPI Hematologic/Lymphatic: Hematologic/Lymphatic: Reports no additional hematologic/lymphatic complaints and Reports as per HPI Allergic/Immunologic: Allergic/Immunologic: Reports no additional allergic/immunologic complaints and Reports as per HPI PMFSH Past Medical History Medical History Acute upper respiratory infection, unspecified Dizziness GARRETT (generalized anxiety disorder) Hypertension Obesity Surgical History Surgical History No pertinent past surgical history Social History Social History Smoking status: Never smoker Tobacco type: smokeless tobacco Smokeless tobacco user: chewing tobacco Second hand tobacco smoke exposure: Yes Smoking end date: 11/29/11 Alcohol intake: current Exam Const: General: healthy appearing Nutritional Appearance: well nourished Orientation/consciousness: patient oriented x3 Limitations: no limitations HENMT: Head: normal to inspection Ears: external ears normal General nose exam: Normal external nose present Face and sinus: normal facial exam Mouth: Yes Normal oral and palatal mucosa present Teeth and gingiva: dentition normal Throat: posterior oropharynx normal Eyes: Conjunctivae: conjunctivae normal and conjunctival abnormality Pupi
--- NOTE | 2022-05-02 09:59 | ECG_ITS ---
Measurements Intervals [place] Rate: 57 P: 32 NV: 170 QRS: 49 QRSD: 102 T: 38 QT: 403 QTc: 393 Interpretive Statements SINUS BRADYCARDIA WITH SINUS ARRHYTHMIA COMPARED TO ECG 12/28/2021 12:50:42 NO SIGNIFICANT CHANGES Electronically Signed On 05-02-2022 16:54:01 CDT by Awilda Zaragoza M.D.
[2022-05-02 10:20] LABS: Basophils Absolute Auto 0.08 K/mm3 (0.00-0.10); Eosinophils Absolute Auto 0.05 K/mm3 (0.02-0.50); Eosinophils Percent Auto 0.6 % (1.0-6.0); Hematocrit 44.4 % (40.0-54.0); Hemoglobin 15.3 g/dL (14.0-18.0); Immature Granulocyte Absolute 0.06 K/mm3 (0.00-0.00); Immature Granulocyte Percent A 0.7 % (0.0-0.0); Lymphocytes Absolute Auto 1.49 K/mm3 (1.10-4.50); Mean Corpuscular HGB Conc 34.5 g/dL (32.0-36.0); Mean Corpuscular Hemoglobin 30.8 pg (27.0-31.0); Mean Corpuscular Volume 89.5 fL (78.0-102.0); Mean Platelet Volume 10.7 fl (8.7-11.0); Monocytes Absolute Auto 0.77 K/mm3 (0.10-0.90); Monocytes Percent Auto 9.3 % (2.0-11.0); Neutrophils Absolute Auto 5.8 K/mm3 (1.7-7.2); Neutrophils Percent Auto 70.4 % (50.0-70.0); Platelet Count Result 286 K/mm3 (150-420); Red Blood Count 4.96 M/mm3 (4.70-6.10); Red Cell Distribution Width 11.9 % (11.6-14.4); White Blood Count 8.3 K/mm3 (4.8-10.8)
[2022-05-02 10:35] LABS: Alanine Aminotransferase 35 U/L (16-63); Albumin Level 3.9 g/dL (3.4-5.0); Alkaline Phosphatase 92 U/L (46-116); Anion Gap 8 mmol/L (8-16); Aspartate Amino Transferase 15 U/L (15-37); Bilirubin,Total 1.4 mg/dL (0.00-1.00); Blood Urea Nitrogen 16 mg/dL (7-18); Calcium 8.7 mg/dL (8.5-10.1); Carbon Dioxide 27 mmol/L (21-32); Chloride 104 mmol/L (98-108); Estimated CRCL calculation 104 ml/min; Estimated Glomerular Filt Rate > 60; Glucose 104 mg/dL (70-99); Osmolality Calculated 289 mOsm/kg (285-295); Potassium 4.2 mmol/L (3.5-5.1); Sodium 139 mmol/L (136-145); Total Protein 7.1 g/dL (6.4-8.2)
--- NOTE | 2022-05-02 10:39 | PC.NURSE ---
PT IS RESTING ON STRETCHER IN EXAM ROOM AT THIS TIME AWAITING RESULTS. NAD NOTED. PT DENIES ANY NEEDS OR COMPLAINTS. WILL CONTINUE TO MONITOR.
[2022-05-02 10:42] LABS: Troponin I 6.9 ng/L (0.00-60.4)
[2022-05-02 10:49] LABS: Thyroid Stimulating Hormone 1.05 uIU/mL (0.36-3.74)
[2022-05-02 10:55] LABS: INR 1.1; Prothrombin Time 11.4 Seconds (9.50-12.10)
== END 2022-05-02 11:35 | disposition home or self-care (01) ==
PROVIDERS: Emergency Provider Internal Medicine Critical Care Medicine; PCP Family Medicine
DX: R06.02 Shortness of breath (principal); F41.9 Anxiety disorder, unspecified; R00.1 Bradycardia, unspecified
CPT/HCPCS: 36415; 71045; 80053; 84443; 84484; 85025; 85610; 93005; 99284

== ENCOUNTER 2022-09-02 15:05 | Emergency (ER) | payer SELFPAY ==
[2022-09-02 15:14] VITALS: BP 134/89; PULSE 84; RESP 16; TEMP 37.1; O2SAT 97
--- NOTE | 2022-09-02 15:25 | ED.DIZZY ---
HPI - Dizziness General Chief Complaint: Dizziness Stated Complaint: dizzy Time Seen by Provider: 09/02/22 15:25 Source: patient Mode of arrival: ambulatory History of Present Illness HPI Narrative: 36-year-old male with a history of hypertension, generalized anxiety disorder presents to the ER with a two day history of -- dizziness/ lightheadedness on turning his head. no chest pain or shortness of breath. No focal neuro deficits. 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 The patient had been on Paxil at 1 point of time but was unable to continue taking it secondary to its high cost. MD elicited complaint: dizziness and lightheadedness Onset (ago): day(s) ( For past 2 days) Timing: gradual onset Severity: mild Description: lightheadedness History of similar symptoms: No Exacerbating factors: other ( his lightheadedness comes on whenever he turns his head.) Relieving factors: nothing Associated symptoms: denies other symptoms Related Data Home Medications Medication Instructions Recorded Confirmed omeprazole 40 mg capsule,delayed See Rx Instructions .Route .COMPLEX 08/27/21 09/02/22 release Allergies Allergy/AdvReac Type Severity Reaction Status Date / Time No Known Drug Allergies Allergy Mild Unknown Verified 05/02/22 09:42 Review of Systems Review of Systems: All systems reviewed & are unremarkable except as noted in HPI and below Constitutional: Constitutional: Reports as per HPI and Reports no additional constitutional complaints Eyes: Eyes: Reports as per HPI and Reports no additional eye complaints ENT: Reports system reviewed and no additional complaints, except as documented and Reports as per HPI Cardiovascular: Cardiovascular: Reports as per HPI and Reports no additional cardiovascular complaints Respiratory: Respiratory: Reports as per HPI and Reports no additional respiratory complaints Gastrointestinal: Gastrointestinal: Reports as per HPI and Reports no additional gastrointestinal complaints Genitourinary: Genitourinary: Reports no additional male genitourinary complaints and Reports as per HPI Musculoskeletal: Musculoskeletal: Reports no additional musculoskeletal complaints and Reports as per HPI Integumentary/Breasts: Skin/Breast: Reports system reviewed and no additional complaints, except as docu and Reports as per HPI Neurologic: Reports system reviewed and no additional complaints, except as documented, Reports as per HPI and Reports dizziness Psychiatric: Psychiatric: Reports no additional psychiatric complaints, Reports as per HPI and Reports anxiety Endocrine: Endocrine: Reports no additional endocrine complaints and Reports as per HPI Hematologic/Lymphatic: Hematologic/Lymphatic: Reports no additional hematologic/lymphatic complaints and Reports as per HPI Allergic/Immunologic: Allergic/Immunologic: Reports no additional allergic/immunologic complaints and Reports as per HPI PMFSH Past Medical History Medical History Acute upper respiratory infection, unspecified Dizziness GARRETT (generalized anxiety disorder) Hypertension Obesity Surgical History Surgical History No pertinent past surgical history Social History Social History Smoking status: Never smoker Tobacco type: smokeless tobacco Smokeless tobacco user: chewing tobacco Second hand tobacco smoke exposure: Yes Smoking end date: 11/29/11 Alcohol intake: current Exam Const: General: healthy appearing Nutritional Appearance: well nourished Orientation/consciousness: patient oriented x3 Limitations: no limitations Other: Patient's blood pressure is stable. He is not orthostatic. HENMT: Head: normal to inspection Ears: TM's normal bilaterally Face/Nose/Sinus: Normal external nose present Face and
--- NOTE | 2022-09-02 15:44 | ECG_ITS ---
Measurements Intervals [place] Rate: 82 P: 13 FL: 140 QRS: 44 QRSD: 92 T: 29 QT: 357 QTc: 418 Interpretive Statements SINUS RHYTHM NORMAL ECG COMPARED TO ECG 05/02/2022 10:10:30 HEART RATE INCREASED NO OTHER DIFFERENCE Electronically Signed On 09-04-2022 13:58:57 CDT by Ian Allen M.D.
[2022-09-02 16:20] LABS: Basophils Absolute Auto 0.06 K/mm3 (0.00-0.10); Basophils Percent Auto 0.6 % (0.0-1.0); Eosinophils Absolute Auto 0.11 K/mm3 (0.02-0.50); Eosinophils Percent Auto 1.2 % (1.0-6.0); Hematocrit 42.7 % (40.0-54.0); Hemoglobin 14.4 g/dL (14.0-18.0); Immature Granulocyte Absolute 0.07 K/mm3 (0.00-0.00); Immature Granulocyte Percent A 0.7 % (0.0-0.0); Lymphocytes Percent Auto 18.2 % (18.0-42.0); Mean Corpuscular HGB Conc 33.7 g/dL (32.0-36.0); Mean Corpuscular Hemoglobin 30.4 pg (27.0-31.0); Mean Corpuscular Volume 90.1 fL (78.0-102.0); Mean Platelet Volume 10.9 fl (8.7-11.0); Monocytes Absolute Auto 0.96 K/mm3 (0.10-0.90); Monocytes Percent Auto 10.3 % (2.0-11.0); Neutrophils Absolute Auto 6.4 K/mm3 (1.7-7.2); Platelet Count Result 280 K/mm3 (150-420); Red Blood Count 4.74 M/mm3 (4.70-6.10); Red Cell Distribution Width 11.9 % (11.6-14.4); White Blood Count 9.3 K/mm3 (4.8-10.8)
[2022-09-02 16:30] VITALS: BP 130/79; PULSE 84; RESP 20; O2SAT 97
[2022-09-02 16:51] LABS: INR 1.1; Prothrombin Time 11.6 Seconds (9.50-12.10)
[2022-09-02 16:53] LABS: Anion Gap 6 mmol/L (8-16); Blood Urea Nitrogen 20 mg/dL (7-18); Carbon Dioxide 29 mmol/L (21-32); Chloride 107 mmol/L (98-108); Estimated CRCL calculation 90 ml/min; Estimated Glomerular Filt Rate > 60; Sodium 142 mmol/L (136-145)
[2022-09-02 16:54] LABS: Alanine Aminotransferase 32 U/L (16-63); Albumin Level 3.8 g/dL (3.4-5.0); Alkaline Phosphatase 86 U/L (46-116); Aspartate Amino Transferase 18 U/L (15-37); Calcium 8.8 mg/dL (8.5-10.1); Glucose 84 mg/dL (70-99); Osmolality Calculated 295 mOsm/kg (285-295); Total Protein 6.7 g/dL (6.4-8.2); Troponin I 7.5 ng/L (0.00-60.4)
[2022-09-02 17:00] LABS: Thyroid Stimulating Hormone 1.15 uIU/mL (0.36-3.74)
[2022-09-02 17:43] VITALS: BP 126/69; PULSE 71; RESP 20; TEMP 36.3; O2SAT 97
== END 2022-09-02 17:45 | disposition home or self-care (01) ==
PROVIDERS: Emergency Provider Internal Medicine Critical Care Medicine; PCP Family Medicine
DX: R42 Dizziness and giddiness (principal); F41.9 Anxiety disorder, unspecified
CPT/HCPCS: 36415; 80053; 84443; 84484; 85025; 85610; 93005; 99284

== ENCOUNTER 2022-09-27 20:59 | Emergency (ER) | payer SELFPAY ==
[2022-09-27 21:00] VITALS: BP 140/83; PULSE 90; RESP 20; TEMP 36.6; O2SAT 100
--- NOTE | 2022-09-27 21:07 | ED.EXTPRO ---
HPI - Extremity Problem General Chief complaint: Wound/Laceration Stated complaint: left hand injury Time Seen by Provider: 09/27/22 21:05 Source: patient Mode of arrival: ambulatory Limitations: no limitations History of Present Illness HPI Narrative: Patient is a 36-year-old right-handed white male was cleaning a deer with a knife pressing against the breast bone and the knife slipped and cut his left thumb dorsal base of the thumb 3.5 cm. [place] some numbness just distal to the laceration. He has no loss of function of his thumb or hand. No color changes. Minimal tenderness. Tetanus immunization was given to him in the emergency room today. Denies any other injuries. This occurred 20 minutes prior to admission occurred at his home. Related Data Home Medications Medication Instructions Recorded Confirmed omeprazole 40 mg capsule,delayed See Rx Instructions .Route .COMPLEX 08/27/21 09/27/22 release Allergies Allergy/AdvReac Type Severity Reaction Status Date / Time No Known Drug Allergies Allergy Mild Unknown Verified 05/02/22 09:42 Review of Systems Review of Systems: All systems reviewed & are unremarkable except as noted in HPI and below Musculoskeletal: Musculoskeletal: Reports no additional musculoskeletal complaints, Reports as per HPI, Denies back pain, Denies myalgias, Denies arthralgias, Denies joint swelling and Denies muscle cramps Integumentary/Breasts: Skin/Breast: Reports system reviewed and no additional complaints, except as docu and Reports as per HPI Neurologic: Reports system reviewed and no additional complaints, except as documented, Reports as per HPI, Denies focal weakness, Reports numbness and Denies weakness PMFSH Past Medical History Medical History Acute upper respiratory infection, unspecified Dizziness GARRETT (generalized anxiety disorder) Hypertension Obesity Surgical History Surgical History No pertinent past surgical history Social History Social History Smoking status: Never smoker Tobacco type: smokeless tobacco Smokeless tobacco user: chewing tobacco Second hand tobacco smoke exposure: Yes Smoking end date: 11/29/11 Alcohol intake: current Exam Narrative: Patient is a white male he appears in no apparent distress. Healthy. Left hand has a 3.5 cm laceration over the dorsal aspect of his base of his thumb. There is no tendon identified he has strong extension flexion and abduction of his thumb good range of motion of all fingers of his hand. He has normal speech radial ulnar medial nerve testing for sensory and motor. He has full range of motion of his risk radial pulses +2. Normal above left wrist. Const: General: healthy appearing Nutritional Appearance: well nourished Orientation/consciousness: patient oriented x3 Limitations: no limitations Course Course Emergency Course: Six sutures were applied to his laceration patient tolerated procedure well Vital Signs Vital signs: Vital Signs Temperature 36.6 C 09/27/22 21:00 Pulse Rate 90 09/27/22 21:00 Respiratory Rate 20 09/27/22 21:00 Blood Pressure 140/83 09/27/22 21:00 Pulse Oximetry 100 09/27/22 21:00 Oxygen Delivery Room Air 09/27/22 21:00 Temperature 36.6 C 09/27/22 21:00 Pulse Rate 90 09/27/22 21:00 Respiratory Rate 20 09/27/22 21:00 Blood Pressure 140/83 09/27/22 21:00 Pulse Oximetry 100 09/27/22 21:00 Oxygen Delivery Room Air 09/27/22 21:00 Procedures Laceration Laceration 1: Date: 09/27/22 Time: 21:47 Side (If applicable): left ( left dorsal thumb) Size (cm): 3.5 Description: linear Depth: simple, single layer Local Anesthetic: lidocaine 1% ( 10 mL) Amount of anesthesia used (mL): 10 Pre-repair: wound explor
[2022-09-27] MEDS: LIDOCAINE HCL 1% LOCAL INJ 10 ML VIAL INFILTRATE (21:11)
[2022-09-27] MEDS: TETANUS,DIPHTHERIA,AC PERTUSSIS ADULT 0.5 ML (ADACEL) IM (21:13)
[2022-09-27] MEDS: AMOXICILLIN/CLAVULANATE K 875-125 MG TAB 1 TABLET PO (21:59)
[2022-09-27 22:00] VITALS: BP 132/80; PULSE 84; RESP 18; TEMP 36.6; O2SAT 99
== END 2022-09-27 22:10 | disposition home or self-care (01) ==
PROVIDERS: Emergency Provider Emergency Medicine; PCP Family Medicine
DX: S61.012A Laceration without foreign body of left thumb without damage to nail, initial encounter (principal); W26.0XXA Contact with knife, initial encounter
CPT/HCPCS: 12002; 90471; 90715; 99283; A9270

== ENCOUNTER 2022-10-11 18:26 | Emergency (ER) | payer SELFPAY ==
--- NOTE | 2022-10-11 18:29 | ED.SKABFB ---
HPI - Skin/Abscess/Foreign Bdy General Stated complaint: L hand stitches removal Time Seen by Provider: 10/11/22 18:28 Source: patient and RN notes reviewed Mode of arrival: ambulatory Limitations: no limitations History of Present Illness HPI narrative: Patient had a laceration on his left thumb 2 weeks ago. He is here for suture removal. He has no pain. There is nothing that makes it better worse. complaint: other ( Suture removal) Onset (ago): week(s) (2) Location: LUE Quality: other ( no pain) Relieving factors: none Exacerbating factors: none Associated symptoms: denies other symptoms Related Data Home Medications Medication Instructions Recorded Confirmed omeprazole 40 mg capsule,delayed See Rx Instructions .Route .COMPLEX 08/27/21 09/27/22 release Allergies Allergy/AdvReac Type Severity Reaction Status Date / Time No Known Drug Allergies Allergy Mild Unknown Verified 10/11/22 18:37 Review of Systems Review of Systems: All systems reviewed & are unremarkable except as noted in HPI and below PMFSH Past Medical History Medical History Acute upper respiratory infection, unspecified Dizziness GARRETT (generalized anxiety disorder) Hypertension Obesity Surgical History Surgical History No pertinent past surgical history Social History Social History Smoking status: Never smoker Tobacco type: smokeless tobacco Smokeless tobacco user: chewing tobacco Second hand tobacco smoke exposure: Yes Smoking end date: 11/29/11 Alcohol intake: current Exam Const: General: healthy appearing, no acute distress and alert Nutritional Appearance: well nourished Orientation/consciousness: patient oriented x3 Limitations: no limitations HENMT: Head: normal to inspection Ears: external ears normal Eyes: Conjunctivae: conjunctivae normal Pupils: Equal, round and reactive pupils present EOM: EOMs intact bilaterally Neck: Neck: normal visual inspection Resp: Effort & Inspection: normal respiratory effort Auscultation: clear to auscultation bilaterally Cardio: Rate: regular rate Rhythm: regular rhythm GI: Auscultation: normal bowel sounds Back/Spine/Pelvis: Cervical Spine: cervical ROM normal Thoracic/Lumbar Spine: thoraco-lumbar ROM normal Skin: General skin exam: normal color Rashes: no rashes Other: Sutured wound present on the left 1st metacarpal on the dorsal aspect. Neuro: General: patient oriented x3, moves all extremities, no focal motor deficits and CN's II-XI intact bilaterally Speech: normal speech Gait exam (Neuro): Normal gait present Extrem: General: no clubbing, cyanosis or edema Psych: Mental Status: mental status grossly normal Affect: normal affect Attitude: cooperative Procedures Other Procedure Procedure 1: Other Procedure: 6 sutures removed from the left hand along the 1st metacarpal. Discharge Plan Discharge Clinical Impression: Encounter for removal of sutures Patient Disposition: Home, Self-Care Condition: Improved Instructions: Stitches Removal (ED) Prescriptions: No Action omeprazole 40 mg capsule,delayed release(DR/EC) See Rx Instructions .ROUTE .COMPLEX Rx Instructions: daily amoxicillin-pot clavulanate 875-125 mg tablet 1 tablet PO Q12H 5 Days Qty: 10 0RF paroxetine HCl 10 mg tablet See Rx Instructions .ROUTE .COMPLEX Qty: 90 1RF Dose Instruction: TAKE 1 TABLET BY MOUTH EVERY DAY Rx Instructions: TAKE 1 TABLET BY MOUTH EVERY DAY lisinopril 10 mg tablet See Rx Instructions .ROUTE .COMPLEX Qty: 30 0RF Dose Instruction: TAKE 1 TABLET BY MOUTH EVERY DAY Rx Instructions: TAKE 1 TABLET BY MOUTH EVERY DAY Must have appt before next refill Follow-up/Referrals: Riley,MD Kwadwo [Primary Care Provider]
[2022-10-11 18:34] VITALS: BP 124/73; PULSE 109; RESP 16; TEMP 36.7; O2SAT 97
[2022-10-11 18:43] VITALS: BP 124/73; PULSE 109; RESP 16; TEMP 36.7; O2SAT 97
== END 2022-10-11 18:44 | disposition home or self-care (01) ==
PROVIDERS: Emergency Provider Emergency Medicine; PCP Family Medicine
DX: Z48.02 Encounter for removal of sutures (principal)
CPT/HCPCS: 99281

== ENCOUNTER 2023-01-16 19:45 | Emergency (ER) | payer OTHER, SELFPAY ==
[2023-01-16 19:53] VITALS: BP 121/105; PULSE 122; RESP 20; TEMP 36.1; O2SAT 99
[2023-01-16] MEDS: SODIUM CHLORIDE 0.9% IV 1,000 ML 999 ML IV CONT (20:29)
[2023-01-16] MEDS: ONDANSETRON INJ 4 MG/2 ML VIAL IV PUSH (20:29)
[2023-01-16 20:41] LABS: Basophils Absolute Auto 0.06 K/mm3 (0.00-0.10); Basophils Percent Auto 0.4 % (0.0-1.0); Eosinophils Absolute Auto 0.04 K/mm3 (0.02-0.50); Eosinophils Percent Auto 0.2 % (1.0-6.0); Hemoglobin 17.1 g/dL (14.0-18.0); Immature Granulocyte Absolute 0.13 K/mm3 (0.00-0.00); Immature Granulocyte Percent A 0.8 % (0.0-0.0); Lymphocytes Percent Auto 4.9 % (18.0-42.0); Mean Corpuscular HGB Conc 34.9 g/dL (32.0-36.0); Mean Corpuscular Hemoglobin 30.7 pg (27.0-31.0); Mean Platelet Volume 10.5 fl (8.7-11.0); Monocytes Absolute Auto 0.91 K/mm3 (0.10-0.90); Monocytes Percent Auto 5.6 % (2.0-11.0); Neutrophils Absolute Auto 14.3 K/mm3 (1.7-7.2); Neutrophils Percent Auto 88.1 % (50.0-70.0); Platelet Count Result 339 K/mm3 (150-420); Red Blood Count 5.57 M/mm3 (4.70-6.10); White Blood Count 16.2 K/mm3 (4.8-10.8)
[2023-01-16 21:00] LABS: Alanine Aminotransferase 39 U/L (16-63); Albumin Level 4.3 g/dL (3.4-5.0); Alkaline Phosphatase 106 U/L (46-116); Anion Gap 10 mmol/L (8-16); Aspartate Amino Transferase 16 U/L (15-37); Bilirubin,Total 1.3 mg/dL (0.00-1.00); Blood Urea Nitrogen 27 mg/dL (7-18); Carbon Dioxide 26 mmol/L (21-32); Chloride 102 mmol/L (98-108); Estimated CRCL calculation 88 ml/min; Estimated Glomerular Filt Rate > 60; Glucose 117 mg/dL (70-99); Osmolality Calculated 292 mOsm/kg (285-295); Potassium 4.4 mmol/L (3.5-5.1); Sodium 138 mmol/L (136-145); Total Protein 8.1 g/dL (6.4-8.2)
--- NOTE | 2023-01-16 21:20 | ED.ABDPAIN ---
HPI - Abdominal Pain General Chief Complaint: Abdominal Pain Stated Complaint: Vomiting Source: patient and family Mode of arrival: ambulatory Limitations: no limitations History of Present Illness MD elicited complaint: abdominal pain Onset (ago): hour(s) Pain Consistency: intermittent Severity: mild Quality: cramping Context: confirms possible food poisoning Associated symptoms: nausea, vomiting and diarrhea Related Data Home Medications Medication Instructions Recorded Confirmed omeprazole 40 mg capsule,delayed See Rx Instructions .Route .COMPLEX 08/27/21 10/11/22 release Allergies Allergy/AdvReac Type Severity Reaction Status Date / Time No Known Drug Allergies Allergy Mild Unknown Verified 10/11/22 18:37 Review of Systems Review of Systems: All systems reviewed & are unremarkable except as noted in HPI and below PMFSH Past Medical History Medical History Acute upper respiratory infection, unspecified Dizziness GARRETT (generalized anxiety disorder) Hypertension Obesity Surgical History Surgical History No pertinent past surgical history Social History Social History Smoking status: Never smoker Tobacco type: smokeless tobacco Smokeless tobacco user: chewing tobacco Second hand tobacco smoke exposure: Yes Smoking end date: 11/29/11 Alcohol intake: current Exam Const: General: healthy appearing Nutritional Appearance: well nourished Limitations: no limitations HENMT: Head: normal to inspection Eyes: Conjunctivae: conjunctivae normal Pupils: Equal, round and reactive pupils present EOM: EOMs intact bilaterally Neck: Neck: normal visual inspection Chest: Chest palpation & inspection: normal inspection of the chest Resp: Effort & Inspection: normal respiratory effort Auscultation: clear to auscultation bilaterally Cardio: Rate: regular rate Rhythm: regular rhythm GI: GI Palp: Yes Soft to palpation Auscultation: normal bowel sounds : General: Yes bladder normal to palpation Urinary Catheter: Urinary Catheter: patent and draining Back/Spine/Pelvis: Back: no CVA tenderness Skin: General skin exam: normal color Rashes: no rashes Wounds: no wounds Neuro: General: patient oriented x3, moves all extremities, no meningeal signs and no focal motor deficits Extrem: General: normal to inspection Psych: Mental Status: mental status grossly normal Course Course Emergency Course: Labs reviewed with patient family, patient received IV fluids and IV Zofran heart rate initially 122 currently down to 90 at this and they elevated white blood cell count, the rest of his labs are unremarkable. Vital Signs Vital signs: Vital Signs Temperature 36.1 C L 01/16/23 19:53 Pulse Rate 122 H 01/16/23 19:53 Respiratory Rate 20 01/16/23 19:53 Blood Pressure 121/105 H 01/16/23 19:53 Pulse Oximetry 99 01/16/23 19:53 Oxygen Delivery Room Air 01/16/23 19:53 Temperature 36.1 C L 01/16/23 19:53 Pulse Rate 122 H 01/16/23 19:53 Respiratory Rate 20 01/16/23 19:53 Blood Pressure 121/105 H 01/16/23 19:53 Pulse Oximetry 99 01/16/23 19:53 Oxygen Delivery Room Air 01/16/23 19:53 MDM - Abdominal Pain Lab Data 01/16/23 20:14 01/16/23 20:14 Labs: Lab Results 01/16/23 01/16/23 Range/Units 20:14 20:14 WBC 16.2 H (4.8-10.8) K/mm3 RBC 5.57 (4.70-6.10) M/mm3 Hgb 17.1 (14.0-18.0) g/dL Hct 49.0 (40.0-54.0) % MCV 88.0 (78.0-102.0) fL MCH 30.7 (27.0-31.0) pg MCHC 34.9 (32.0-36.0) g/dL RDW 12.0 (11.6-14.4) % Plt Count 339 (150-420) K/mm3 MPV 10.5 (8.7-11.0) fl Immature Gran % (Auto) 0.8 H (0.0-0.0) % Neut % (Auto) 88.1 H (50.0-70.0) % Lymph % (Auto) 4.9 L (18.0-42.0) % [place] % (Auto) 5.6 (2.0-11.0) %
[2023-01-16 21:21] VITALS: BP 138/81; PULSE 90; RESP 20; O2SAT 99
[2023-01-16 21:49] VITALS: TEMP 36.7
== END 2023-01-16 21:50 | disposition home or self-care (01) ==
PROVIDERS: Emergency Provider Emergency Medicine; PCP Family Medicine
DX: K52.9 Noninfective gastroenteritis and colitis, unspecified (principal); I10 Essential (primary) hypertension
CPT/HCPCS: 36415; 80053; 85025; 96361; 96374; 99284; J2405; J7030

== ENCOUNTER 2023-02-03 04:52 | Emergency (ER) | payer OTHER, SELFPAY ==
[2023-02-03 04:55] VITALS: BP 135/91; PULSE 72; RESP 20; TEMP 36.2; O2SAT 100
--- NOTE | 2023-02-03 05:05 | ED.URI ---
HPI - URI/Sore Throat General Chief Complaint: Upper Respiratory Infection Stated Complaint: Sick Time Seen by Provider: 02/03/23 04:56 History of Present Illness HPI Narrative: This is a 37-year-old male with past medical history of hypertension, who presents to the emergency department complaining of sinus drainage and coughing up mucus with blood. He states earlier this morning, he felt congested and the sensation of something running down the back of his throat. He then coughed up mucus with blood. He felt anxious and somewhat lightheaded, prompting his visit today. He denies other cough, fever, sinus pressure or continued bleeding. Related Data Home Medications Medication Instructions Recorded Confirmed omeprazole 40 mg capsule,delayed See Rx Instructions .Route .COMPLEX 08/27/21 02/03/23 release Allergies Allergy/AdvReac Type Severity Reaction Status Date / Time No Known Drug Allergies Allergy Mild Unknown Verified 10/11/22 18:37 Review of Systems Review of Systems: CONSTITUTIONAL: Denies fever, chills, or sweats. EYES: Denies visual changes, redness, or discharge. ENT: rhinorrhea, congestion Denies sore throat, or otalgia. CARDIOVASCULAR: Denies chest pain, palpitations, or edema. RESPIRATORY: Denies cough or dyspnea. GASTROINTESTINAL: Denies abdominal pain, nausea, vomiting, or diarrhea. SKIN: Denies rash or itching. MUSCULOSKELETAL: Denies back pain, joint pain, or myalgia. NEUROLOGIC: Lightheadedness now resolved denies headache, numbness, dizziness, or weakness. PSYCHIATRIC: Denies anxiety or depression. PMFSH Past Medical History Medical History Acute upper respiratory infection, unspecified Dizziness GARRETT (generalized anxiety disorder) Hypertension Obesity Surgical History Surgical History No pertinent past surgical history Social History Social History Smoking status: Never smoker Tobacco type: smokeless tobacco Smokeless tobacco user: chewing tobacco Second hand tobacco smoke exposure: Yes Smoking end date: 11/29/11 Alcohol intake: current Exam Narrative: GENERAL: Well-developed, well-nourished, appears somewhat anxious HEAD: Normocephalic, atraumatic. EYES: PERRLA and EOMI. ENT: Nares clear, no rhinorrhea or epistaxis. Dried mucus noted in right nares. Mucous membranes moist. Oropharynx without tonsillar hypertrophy exudate or other lesions. No bleeding noted in the posterior oropharynx. Bilateral TMs pearly blake nonbulging. NECK: Supple. No adenopathy or masses. No carotid bruits or JVD CHEST: Clear to auscultation. No respiratory distress. No wheezes rales or rhonchi HEART: Regular rate and rhythm. No murmur heard. Normal peripheral pulses. ABDOMEN: Soft, nontender, nondistended, normal active bowel sounds. PSYCH: Normal mood. Somewhat anxious affect. Course Course Emergency Course: 05:05 - The patient's exam is not concerning for epistaxis, including posterior epistaxis. I suspect postnasal drip related to viral upper respiratory infection. Discussed return and emergency precautions including persistent epistaxis and airway compromise. The patient voiced understanding and is comfortable with the plan. All questions answered to his satisfaction. Vital Signs Vital signs: Vital Signs Temperature 97.1 F L 02/03/23 04:55 Pulse Rate 72 02/03/23 04:55 Respiratory Rate 20 02/03/23 04:55 Blood Pressure 135/91 H 02/03/23 04:55 Pulse Oximetry 100 02/03/23 04:55 Oxygen Delivery Room Air 02/03/23 04:55 Temperature 97.1 F L 02/03/23 04:55 Pulse Rate 87 02/03/23 05:12 Respiratory Rate 20 02/03/23 05:12 Blood Pressure 133/87 02/03/23 05:12 Pulse Oximetry 100 02/03/23 05:12 Oxygen Delivery Room Air 02/03/23 05:12 MDM - URI/Sore Throat [facility]
[2023-02-03 05:12] VITALS: BP 133/87; PULSE 87; RESP 20; O2SAT 100
== END 2023-02-03 05:15 | disposition home or self-care (01) ==
PROVIDERS: Emergency Provider Preventive Medicine Aerospace Medicine; PCP Family Medicine
DX: J06.9 Acute upper respiratory infection, unspecified (principal); F41.1 Generalized anxiety disorder; I10 Essential (primary) hypertension
CPT/HCPCS: 99282

== ENCOUNTER 2023-04-08 12:38 | Emergency (ER) | payer OTHER, SELFPAY ==
--- NOTE | 2023-04-08 12:40 | ECG_ITS ---
Measurements Intervals [place] Rate: 58 P: 14 ME: 167 QRS: 42 QRSD: 93 T: 26 QT: 408 QTc: 403 Interpretive Statements SINUS BRADYCARDIA EARLY PRECORDIAL R/S TRANSITION BORDERLINE ECG COMPARED TO ECG 09/02/2022 16:02:36 SINUS BRADYCARDIA NOW PRESENT Electronically Signed On 04-08-2023 12:48:08 CDT by Ramirez Sims D.O.
[2023-04-08 12:44] VITALS: BP 153/70; PULSE 78; RESP 16; TEMP 36.6; O2SAT 98
[2023-04-08 12:59] LABS: Basophils Absolute Auto 0.1 K/mm3 (0.0-0.1); Basophils Percent Auto 0.9 % (0.2-1.2); Eosinophils Absolute Auto 0.1 K/mm3 (0-0.3); Eosinophils Percent Auto 0.7 % (0-4.4); Hematocrit 47.3 % (42.0-52.0); Hemoglobin 16.2 g/dL (14.0-18.0); Immature Granulocyte Absolute 0.07 K/mm3 (0.00-0.031); Immature Granulocyte Percent A 0.8 % (0-0.5); Lymphocytes Absolute Auto 1.98 K/mm3 (0.9-3.2); Lymphocytes Percent Auto 22.9 % (18.3-44.2); Mean Corpuscular HGB Conc 34.2 g/dl (32-36); Mean Corpuscular Hemoglobin 30.8 pg (26-34); Mean Corpuscular Volume 89.9 fl (80-100); Mean Platelet Volume 10.8 fl (7.4-10.4); Monocytes Absolute Auto 0.7 K/mm3 (0.1-0.6); Monocytes Percent Auto 8.2 % (2.6-8.5); Neutrophils Absolute Auto 5.8 K/mm3 (1.3-6.7); Neutrophils Percent Auto 66.5 % (45.5-73.1); Platelet Count Result 302 k/mm3 (150-375); Red Blood Count 5.26 M/mm3 (4.6-6.20); Red Cell Distribution Width 12.2 % (11.5-14.5); White Blood Count 8.7 K/mm3 (4.5-10.0)
[2023-04-08 13:06] LABS: Alanine Aminotransferase 38 U/L (6-50); Albumin Level 4.6 g/dL (3.5-5.1); Alkaline Phosphatase 95 U/L (38-126); Anion Gap 9 mmol/L (8-16); Aspartate Amino Transferase 31 U/L (17-59); Bilirubin,Total 1.4 mg/dL (0.2-1.3); Blood Urea Nitrogen 17 mg/dL (9-20); Carbon Dioxide 29 mmol/L (22-30); Chloride 101 mmol/L (98-107); Estimated CRCL calculation 124 ml/min; Estimated Glomerular Filt Rate > 60; Glucose 97 mg/dL (65-110); Lipase 117 U/L (23-300); Potassium 3.9 mmol/L (3.4-5.0); Sodium 139 mmol/L (137-145)
[2023-04-08 13:18] LABS: Troponin I < 0.012 ng/mL (0.000-0.034)
[2023-04-08 13:48] LABS: Partial Thromboplastin Time 25.8 SECONDS (22.3-36.8); Prothrombin Time 13.4 Seconds (11.1-14.7)
--- NOTE | 2023-04-08 14:06 | PC.NURSE ---
pt called back for x-ray, no answer
== END 2023-04-08 14:06 | disposition left against medical advice (07) ==
PROVIDERS: Emergency Provider Emergency Medicine; PCP Family Medicine
DX: R07.9 Chest pain, unspecified (principal); R06.02 Shortness of breath
CPT/HCPCS: 36415; 80053; 83690; 84484; 85025; 85610; 85730; 93005; 99199

== ENCOUNTER 2024-01-27 21:39 | Emergency (ER) | payer OTHER, SELFPAY ==
[2024-01-27] VITALS (7 sets, daily range): BP systolic 116–138; BP diastolic 75; PULSE 59–73; RESP 14–21; TEMP 36.4; O2SAT 100
--- NOTE | 2024-01-27 21:49 | ED.GENADULT ---
HPI - General Adult General Stated complaint: HTN Time Seen by Provider: 01/27/24 21:42 Source: patient Mode of arrival: ambulatory Limitations: no limitations History of Present Illness HPI narrative: patient is a 38-year-old male with a history of hypertension recently saw his primary and had lisinopril increased to30mg daily patient presents with no acute complaints but is concerned about his blood pressure when he takes it at home. After reassessment and blood pressure readings here in the ER blood pressure is 125/76, patient denies any chest pain no shortness of breath no headache no blurry vision no nausea vomiting no abdominal pain. Onset (ago): day(s) Related Data Home Medications Medication Instructions Recorded Confirmed omeprazole 40 mg capsule,delayed See Rx Instructions .Route .COMPLEX 08/27/21 02/03/23 release Allergies Allergy/AdvReac Type Severity Reaction Status Date / Time No Known Drug Allergies Allergy Mild Unknown Verified 04/08/23 12:39 Review of Systems Review of Systems: All systems reviewed & are unremarkable except as noted in HPI and below PMFSH Past Medical History Medical History Acute upper respiratory infection, unspecified Dizziness GARRETT (generalized anxiety disorder) Hypertension Obesity Surgical History Surgical History No pertinent past surgical history Social History Social History Smoking status: Never smoker Tobacco type: smokeless tobacco Smokeless tobacco user: chewing tobacco Second hand tobacco smoke exposure: Yes Smoking end date: 11/29/11 Alcohol intake: current Exam Const: General: healthy appearing and no acute distress Nutritional Appearance: well nourished Limitations: no limitations Neck: Neck: normal visual inspection Chest: Chest palpation & inspection: normal inspection of the chest Resp: Effort & Inspection: normal respiratory effort Auscultation: clear to auscultation bilaterally Cardio: Rate: regular rate Rhythm: regular rhythm GI: GI Palp: Yes Soft to palpation Auscultation: normal bowel sounds Skin: General skin exam: normal color Neuro: General: patient oriented x3, moves all extremities, no meningeal signs and no focal motor deficits Extrem: General: normal to inspection, no clubbing, cyanosis or edema and no pedal edema Psych: Mental Status: mental status grossly normal Affect: normal affect Course Course Emergency Course: Reassurance blood pressure is normal with a reading of 125/76 advised patient to continue his home medication and follow up with his primary. Critical Care Time Critical Care Time Critical Care Time: No Discharge Plan Discharge Clinical Impression: Hypertension Patient Disposition: Home, Self-Care Condition: Stable Instructions: Antibiotic Form, Chronic Hypertension (ED) Additional Instructions: advised to continue current medical regimen and follow with primary symptoms persist or worsen. Prescriptions: No Action omeprazole 40 mg capsule,delayed release(DR/EC) See Rx Instructions .ROUTE .COMPLEX Rx Instructions: daily paroxetine HCl 10 mg tablet See Rx Instructions .ROUTE .COMPLEX Qty: 90 1RF Dose Instruction: TAKE 1 TABLET BY MOUTH EVERY DAY Rx Instructions: TAKE 1 TABLET BY MOUTH EVERY DAY lisinopril 10 mg tablet See Rx Instructions .ROUTE .COMPLEX Qty: 30 0RF Dose Instruction: TAKE 1 TABLET BY MOUTH EVERY DAY Rx Instructions: TAKE 1 TABLET BY MOUTH EVERY DAY Must have appt before next refill Follow-up/Referrals: Riley,MD Kwadwo [Primary Care Provider] - Time of Disposition: 21:51
== END 2024-01-27 22:20 | disposition home or self-care (01) ==
LOC: CHSED 22:00
PROVIDERS: Emergency Provider Emergency Medicine; PCP Family Medicine
DX: I10 Essential (primary) hypertension (principal)
CPT/HCPCS: 99281

== ENCOUNTER 2024-02-20 14:20 | Emergency (ER) | payer OTHER, MEDICAID, SELFPAY ==
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
[2024-02-20 14:31] VITALS: BP 133/65; PULSE 79; RESP 19; TEMP 36.7; O2SAT 98
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
--- NOTE | 2024-02-20 15:15 | ECG_ITS ---
Measurements Intervals [place] Rate: 79 P: 29 CT: 150 QRS: 46 QRSD: 92 T: 36 QT: 357 QTc: 410 Interpretive Statements SINUS RHYTHM WITH SINUS ARRHYTHMIA EARLY PRECORDIAL R/S TRANSITION BORDERLINE ECG COMPARED TO ECG 04/08/2023 12:44:21 SINUS RHYTHM NOW PRESENT SINUS ARRHYTHMIA NOW PRESENT Electronically Signed On 02-20-2024 16:51:23 CDT by Ramirez Sims D.O.
[2024-02-20 15:37] LABS: Basophils Absolute Auto 0.1 K/mm3 (0.0-0.1); Basophils Percent Auto 0.5 % (0.2-1.2); Eosinophils Percent Auto 0.3 % (0-4.4); Hematocrit 44.6 % (42.0-52.0); Hemoglobin 15.3 g/dL (14.0-18.0); Immature Granulocyte Percent A 0.7 % (0-0.5); Lymphocytes Absolute Auto 1.06 K/mm3 (0.9-3.2); Lymphocytes Percent Auto 7.4 % (18.3-44.2); Mean Corpuscular HGB Conc 34.3 g/dl (32-36); Mean Corpuscular Hemoglobin 30.5 pg (26-34); Mean Corpuscular Volume 88.8 fl (80-100); Mean Platelet Volume 10.8 fl (7.4-10.4); Monocytes Percent Auto 6.7 % (2.6-8.5); Neutrophils Absolute Auto 12.1 K/mm3 (1.3-6.7); Neutrophils Percent Auto 84.4 % (45.5-73.1); Platelet Count Result 295 k/mm3 (150-375); Red Blood Count 5.02 M/mm3 (4.6-6.20); Red Cell Distribution Width 12.4 % (11.5-14.5); White Blood Count 14.3 K/mm3 (4.5-10.0)
[2024-02-20] MEDS: SODIUM CHLORIDE 0.9% IV 1,000 ML 999 ML IV CONT (15:38)
[2024-02-20 15:47] LABS: Alanine Aminotransferase 26 U/L (6-50); Albumin Level 4.2 g/dL (3.5-5.1); Alkaline Phosphatase 81 U/L (38-126); Anion Gap 3 mmol/L (8-16); Aspartate Amino Transferase 23 U/L (17-59); Bilirubin,Total 0.8 mg/dL (0.2-1.3); Blood Urea Nitrogen 17 mg/dL (9-20); Calcium 9.4 mg/dL (8.4-10.2); Carbon Dioxide 28 mmol/L (22-30); Chloride 106 mmol/L (98-107); Estimated CRCL calculation 120 ml/min; Estimated Glomerular Filt Rate > 60; Glucose 119 mg/dL (65-110); Lipase 114 U/L (23-300); Sodium 137 mmol/L (137-145)
[2024-02-20 15:52] LABS: Ethanol < 10 mg/dL (<10)
[2024-02-20 18:49] LABS: Appearance Urine Clear (Clear); Color Urine Yellow (Yellow); pH Urine 5.5 (5.0-9.0)
[2024-02-20 18:50] LABS: Blood Urine Negative (Negative); Glucose Urine UA Negative (Negative); Ketones Urine Trace mg/dL (Negative); Nitrate Urine Negative (Negative); Protein Urine Negative (Negative); Specific Grav Ur 1.025 (1.001-1.035)
[2024-02-20 18:51] LABS: Add Urine Microscopic? NO; Bilirubin Urine Negative (Negative); Leukocyte Esterase Ur Negative LEU/UL (Negative); Urobilinogen Urine 0.2 mg/dL (<2.0)
[2024-02-20 19:04] LABS: Amphetamine Screen Urine Negative (Negative); Barbiturate Screen Urine Negative (Negative); Benzodiazepines Screen Urine Negative (Negative); Cannabinoid Screen Urine Negative (Negative); Cocaine Screen Urine Negative (Negative); Methadone Screen Urine Negative (Negative); Opiate Screen Urine Negative (Negative); Phencyclidine Screen Urine Negative (Negative)
[2024-02-20 19:24] VITALS: BP 136/74; PULSE 74; RESP 18; O2SAT 100
== END 2024-02-20 19:26 | disposition home or self-care (01) ==
PROVIDERS: Emergency Provider Emergency Medicine; PCP Family Medicine
DX: S00.531A Contusion of lip, initial encounter (principal); I10 Essential (primary) hypertension; E66.9 Obesity, unspecified; Z68.32 Body mass index [BMI] 32.0-32.9, adult; Z87.891 Personal history of nicotine dependence; V47.5XXA Car driver injured in collision with fixed or stationary object in traffic accident, initial encounter
CPT/HCPCS: 36415; 70450; 70486; 71260; 72125; 74177; 80053; 80307; 81003; 83690; 85025; 93005; 96360; 99284; J7030; L0140; Q9967

== ENCOUNTER 2024-03-15 09:43 | Emergency (ER) | payer MEDICAID, SELFPAY ==
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
[2024-03-15 09:46] VITALS: BP 122/80; PULSE 90; RESP 19; TEMP 36.4; O2SAT 97
--- NOTE | 2024-03-15 10:05 | ED.ABDPAIN ---
HPI - Abdominal Pain General Chief Complaint: Abdominal Pain Stated Complaint: abdominal pain/diarrhea Source: patient Mode of arrival: ambulatory Limitations: no limitations History of Present Illness HPI narrative: 38-year-old male with a history of generalized anxiety disorder, hypertension presents to the ER with a 5 hour history of -- diffuse abdominal pain -- nausea with multiple episodes of vomiting -- multiple episodes of watery stool. No blood or mucus. No fever or chills no recent antibiotic use. MD elicited complaint: abdominal pain Onset (ago): hour(s) ( symptoms started 5 hours ago.) Pain Consistency: constant Location: diffuse Severity: moderate Quality: aching Radiation: none Migration to: no migration Exacerbating factors: nothing Relieving factors: nothing Associated symptoms: denies other symptoms Related Data Home Medications Medication Instructions Recorded Confirmed omeprazole 40 mg capsule,delayed See Rx Instructions .Route .COMPLEX 08/27/21 03/15/24 release lisinopril 10 mg tablet 30 mg PO DAILY 01/27/24 03/15/24 Allergies Allergy/AdvReac Type Severity Reaction Status Date / Time No Known Drug Allergies Allergy Mild Unknown Verified 01/27/24 21:54 Review of Systems Review of Systems: All systems reviewed & are unremarkable except as noted in HPI and below Constitutional: Constitutional: Reports as per HPI and Reports no additional constitutional complaints Eyes: Eyes: Reports as per HPI and Reports no additional eye complaints ENT: Reports system reviewed and no additional complaints, except as documented and Reports as per HPI Cardiovascular: Cardiovascular: Reports as per HPI and Reports no additional cardiovascular complaints Respiratory: Respiratory: Reports as per HPI and Reports no additional respiratory complaints Gastrointestinal: Gastrointestinal: Reports as per HPI, Reports no additional gastrointestinal complaints, Reports abdominal pain, Reports diarrhea, Reports nausea and Reports vomiting Genitourinary: Genitourinary: Reports no additional male genitourinary complaints and Reports as per HPI Musculoskeletal: Musculoskeletal: Reports no additional musculoskeletal complaints and Reports as per HPI Integumentary/Breasts: Skin/Breast: Reports system reviewed and no additional complaints, except as docu and Reports as per HPI Neurologic: Reports system reviewed and no additional complaints, except as documented and Reports as per HPI Psychiatric: Psychiatric: Reports no additional psychiatric complaints, Reports as per HPI and Reports anxiety Endocrine: Endocrine: Reports no additional endocrine complaints and Reports as per HPI Hematologic/Lymphatic: Hematologic/Lymphatic: Reports no additional hematologic/lymphatic complaints and Reports as per HPI Allergic/Immunologic: Allergic/Immunologic: Reports no additional allergic/immunologic complaints and Reports as per HPI PMFSH Past Medical History Medical History Acute upper respiratory infection, unspecified Dizziness GARRETT (generalized anxiety disorder) Hypertension Obesity Surgical History Surgical History No pertinent past surgical history Social History Social History Smoking status: Never smoker Tobacco type: smokeless tobacco Smokeless tobacco user: chewing tobacco Second hand tobacco smoke exposure: Yes Smoking end date: 11/29/11 Alcohol intake: current Exam Narrative: Vitals are stable. Const: General: no acute distress Nutritional Appearance: well nourished Orientation/consciousness: patient oriented x3 Limitations: no limitations HENMT: Head: normal to inspection Ears: external ears normal Face/Nose/Sinus: Normal external nose present Face and sinus: normal facial exam Mouth: Yes Normal oral and palatal
--- NOTE | 2024-03-15 10:09 | ECG_ITS ---
SEE SCANNED COPY FOR CONFIRMED REPORT MTDD
[2024-03-15] MEDS: PROCHLORPERAZINE EDISYLATE 10 MG/2 ML VIAL IV PUSH (10:24)
[2024-03-15] MEDS: LACTATED RINGERS 1,000 ML 999 ML IV CONT (10:25)
[2024-03-15 10:29] LABS: Basophils Absolute Auto 0.07 K/mm3 (0.00-0.10); Basophils Percent Auto 0.4 % (0.0-1.0); Eosinophils Absolute Auto 0.14 K/mm3 (0.02-0.50); Eosinophils Percent Auto 0.8 % (1.0-6.0); Hematocrit 52.4 % (40.0-54.0); Hemoglobin 18.1 g/dL (14.0-18.0); Immature Granulocyte Absolute 0.13 K/mm3 (0.00-0.00); Immature Granulocyte Percent A 0.7 % (0.0-0.0); Lymphocytes Absolute Auto 0.98 K/mm3 (1.10-4.50); Lymphocytes Percent Auto 5.5 % (18.0-42.0); Mean Corpuscular HGB Conc 34.5 g/dL (32-36); Mean Corpuscular Hemoglobin 30.1 pg (27.0-31.0); Mean Corpuscular Volume 87.2 fL (78.0-102.0); Mean Platelet Volume 10.2 fl (8.7-11.0); Monocytes Absolute Auto 1.38 K/mm3 (0.10-0.90); Monocytes Percent Auto 7.8 % (2.0-11.0); Neutrophils Absolute Auto 15.08 K/mm3 (1.70-7.20); Neutrophils Percent Auto 84.8 % (50.0-70.0); Platelet Count Result 335 K/mm3 (150-420); Red Blood Count 6.01 M/mm3 (4.70-6.10); Red Cell Distribution Width 12.2 % (11.6-14.4); White Blood Count 17.8 K/mm3 (4.8-10.8)
[2024-03-15 10:49] LABS: Lactic Acid Reflex 1.6 mmol/L (0.4-2.0)
[2024-03-15 10:58] LABS: Alanine Aminotransferase 34 U/L (16-63); Albumin Level 4.4 g/dL (3.4-5.0); Alkaline Phosphatase 119 U/L (46-116); Anion Gap 13 mmol/L (4-12); Aspartate Amino Transferase 18 U/L (15-37); Bilirubin,Total 0.8 mg/dL (0.00-1.00); Blood Urea Nitrogen 16 mg/dL (7-18); Calcium 9.3 mg/dL (8.5-10.1); Carbon Dioxide 21 mmol/L (21-32); Chloride 105 mmol/L (98-108); Estimated CRCL calculation 93 ml/min; Estimated Glomerular Filt Rate > 60; Glucose 116 mg/dL (70-99); Lipase 37 U/L (16-77); Osmolality Calculated 290 mOsm/kg (285-295); Sodium 139 mmol/L (136-145); Total Protein 8.6 g/dL (6.4-8.2); Troponin I 5.6 ng/L (0.00-60.4)
[2024-03-15 11:00] VITALS: BP 124/78; PULSE 64; RESP 16; O2SAT 97
[2024-03-15 11:46] LABS: Appearance Urine Clear (Clear); Bilirubin Urine 1+ (Negative); Blood Urine Negative (Negative); Glucose Urine UA Trace (Negative); Ketones Urine Trace (Negative); Leukocyte Esterase Ur Negative LEU/UL (Negative); Nitrate Urine Negative (Negative); Protein Urine 3+ (Negative); Specific Grav Ur >= 1.030 (1.010-1.020)
[2024-03-15 11:50] LABS: Add Urine Microscopic? YES; Bacteria Urine Trace /hpf; Color Urine Amber (Yellow); Mucus Urine Moderate /lpf; RBC Urine None seen /hpf (0-2); Squamous Epithelial Cell Urine Rare /hpf (Few); WBC Urine None seen /hpf (0-3)
[2024-03-15 12:45] VITALS: BP 122/74; PULSE 68; RESP 16; O2SAT 98
== END 2024-03-15 13:05 | disposition home or self-care (01) ==
PROVIDERS: Emergency Provider Internal Medicine Critical Care Medicine; PCP Family Medicine
DX: K52.9 Noninfective gastroenteritis and colitis, unspecified (principal); I10 Essential (primary) hypertension; F41.1 Generalized anxiety disorder; Z87.891 Personal history of nicotine dependence
CPT/HCPCS: 36415; 74177; 80053; 81001; 83605; 83690; 84484; 85025; 93005; 96360; 96374; 99284; J0780; J7120; Q9967

== ENCOUNTER 2024-03-30 08:50 | Emergency (ER) | payer OTHER, SELFPAY ==
[2024-03-30 08:50] VITALS: BP 139/83; PULSE 72; RESP 16; TEMP 36.7; O2SAT 99
--- NOTE | 2024-03-30 09:03 | ED.UPPEXIN ---
HPI - Extremity Injury (Upper) General Chief Complaint: Extremity Injury, Upper Stated Complaint: left hand swelling and pain Time Seen by Provider: 03/30/24 08:59 Source: patient Mode of arrival: ambulatory Limitations: no limitations History of Present Illness HPI narrative: this is a 38-year-old male that had IV contrast IV in his left hand and for the past 2 to 3 days has been having some tenderness and mild swelling in the superficial vein of his left hand with mild redness there is tenderness and warmth with no tracking no fever chills. complaint: injury to: left Onset (ago): day(s) Other Extremity Injury: Left: hand ( tender with palpation) Handedness: right Place: home Related Data Home Medications Medication Instructions Recorded Confirmed omeprazole 40 mg capsule,delayed See Rx Instructions .Route .COMPLEX 08/27/21 03/15/24 release lisinopril 10 mg tablet 30 mg PO DAILY 01/27/24 03/15/24 Allergies Allergy/AdvReac Type Severity Reaction Status Date / Time No Known Drug Allergies Allergy Mild Unknown Verified 01/27/24 21:54 Review of Systems Review of Systems: All systems reviewed & are unremarkable except as noted in HPI and below PMFSH Past Medical History Medical History Acute upper respiratory infection, unspecified Dizziness GARRETT (generalized anxiety disorder) Hypertension Obesity Surgical History Surgical History No pertinent past surgical history Social History Social History Smoking status: Never smoker Tobacco type: smokeless tobacco Smokeless tobacco user: chewing tobacco Second hand tobacco smoke exposure: Yes Smoking end date: 11/29/11 Alcohol intake: current Exam Const: General: healthy appearing Nutritional Appearance: well nourished Orientation/consciousness: patient oriented x3 Limitations: no limitations Chest: Chest palpation & inspection: normal inspection of the chest Resp: Effort & Inspection: normal respiratory effort Auscultation: clear to auscultation bilaterally Cardio: Rate: regular rate Rhythm: regular rhythm Skin: Other: Tenderness anterior left hand with no tracking does have some swelling A&O superficial vein Course Course Emergency Course: reassured patient this not a serious blood clot and will treat for phlebitis advised patient to take ibuprofen and antibiotics as prescribed. Vital Signs Vital signs: Vital Signs Temperature 36.7 C 03/30/24 08:50 Pulse Rate 72 03/30/24 08:50 Respiratory Rate 16 03/30/24 08:50 Blood Pressure 139/83 03/30/24 08:50 Pulse Oximetry 99 03/30/24 08:50 Oxygen Delivery Room Air 03/30/24 08:50 Temperature 36.7 C 03/30/24 08:50 Pulse Rate 72 03/30/24 08:50 Respiratory Rate 16 03/30/24 08:50 Blood Pressure 139/83 03/30/24 08:50 Pulse Oximetry 99 03/30/24 08:50 Oxygen Delivery Room Air 03/30/24 08:50 Critical Care Time Critical Care Time Critical Care Time: No Discharge Plan Discharge Clinical Impression: Superficial phlebitis Patient Disposition: Home, Self-Care Condition: Stable Instructions: Antibiotic Form, Superficial Thrombophlebitis (ED) Additional Instructions: take medicine as prescribed, use ibuprofen as needed with a warm compress to affected hand and follow with primary if symptoms persist or worsen. Prescriptions: New amoxicillin-pot clavulanate [Augmentin] 500-125 mg tablet 1 tablet PO TID Qty: 30 0RF No Action omeprazole 40 mg capsule,delayed release(DR/EC) See Rx Instructions .ROUTE .COMPLEX Rx Instructions: daily lisinopril 10 mg tablet 30 mg PO DAILY Rx Instructions: TAKE 1 TABLET BY MOUTH EVERY DAY Must have appt before next refill paroxetine HCl 10 mg tablet See Rx Instructions .ROUTE .COMPL
== END 2024-03-30 09:21 | disposition home or self-care (01) ==
PROVIDERS: Emergency Provider Emergency Medicine; PCP Family Medicine
DX: T80.1XXA Vascular complications following infusion, transfusion and therapeutic injection, initial encounter (principal); I80.8 Phlebitis and thrombophlebitis of other sites; Y84.8 Other medical procedures as the cause of abnormal reaction of the patient, or of later complication, without mention of misadventure at the time of the procedure; I10 Essential (primary) hypertension; Z87.891 Personal history of nicotine dependence
CPT/HCPCS: 99283

== ENCOUNTER 2024-12-22 13:44 | Emergency (ER) | payer OTHER, SELFPAY ==
--- NOTE | 2024-12-22 13:44 | ECG_ITS ---
Test Date: 2024-12-22 13:50:05 Measurements Intervals [place] Rate: 77 P: 173 TX: 148 QRS: 129 QRSD: 119 T: 142 QT: 356 QTc: 404 Interpretive Statements SINUS RHYTHM ARM LEADS REVERSED [INVERTED P AND QRS IN I] ATYPICAL ECG No previous ECG available for comparison Electronically Signed On 12-22-2024 23:54:30 CAREER ADVISOR by Braeden Jiménez M.D.
[2024-12-22 13:50] VITALS: PULSE 87; RESP 17; TEMP 36.3; O2SAT 100
[2024-12-22 14:07] LABS: Hemoglobin 16.5 g/dL (14.0-18.0); Mean Corpuscular HGB Conc 33.7 g/dl (32-36); Mean Corpuscular Hemoglobin 30.3 pg (26-34); Mean Corpuscular Volume 89.9 fl (80-100); Mean Platelet Volume 10.1 fl (7.4-10.4); Platelet Count Result 285 k/mm3 (150-375); Red Blood Count 5.45 M/mm3 (4.6-6.20); Red Cell Distribution Width 12.2 % (11.5-14.5); White Blood Count 14.5 K/mm3 (4.5-10.0)
[2024-12-22 14:14] VITALS: BP 110/63; PULSE 83
[2024-12-22 14:15] VITALS: BP 118/68; PULSE 89
[2024-12-22 14:17] VITALS: BP 124/63; PULSE 100
[2024-12-22 14:18] LABS: Alanine Aminotransferase 26 U/L (6-50); Albumin Level 4.1 g/dL (3.5-5.1); Alkaline Phosphatase 89 U/L (38-126); Anion Gap 8 mmol/L (4-12); Aspartate Amino Transferase 30 U/L (17-59); Bilirubin,Total 1.4 mg/dL (0.2-1.3); Blood Urea Nitrogen 18 mg/dL (9-20); Calcium 8.8 mg/dL (8.4-10.2); Carbon Dioxide 24 mmol/L (22-30); Chloride 104 mmol/L (98-107); Estimated CRCL calculation 98 ml/min; Estimated Glomerular Filt Rate > 60; Glucose 115 mg/dL (65-110); Lipase 89 U/L (23-300); Potassium 5.1 mmol/L (3.4-5.0); Sodium 136 mmol/L (137-145)
[2024-12-22 14:32] LABS: Band Neutrophils Percent 5 % (0-6); Eosinophils Absolute Manual 0.14 K/mm3 (0.02-0.50); Eosinophils Percent Manual 1 % (0-4); Lymphocytes Absolute Manual 0.43 K/mm3 (1.1-4.5); Monocytes Absolute Manual 0.58 K/mm3 (0.1-0.90); Monocytes Percent Manual 4 % (3-9); Neutrophils Absolute Manual 13.34 K/mm3 (1.3-6.7); Neutrophils Percent Manual 87 % (46-73); Platelet Clumps Present; Platelet Estimate Adequate (Adequate); Schistocytes None Seen; Total Cells Counted 100
[2024-12-22] MEDS: SODIUM CHLORIDE 0.9% IV 1,000 ML 999 ML IV CONT (14:32)
--- NOTE | 2024-12-22 14:47 | ED.ABDPAIN ---
HPI - Abdominal Pain General Chief Complaint: Abdominal Pain Stated Complaint: Abd pain, diarrhea Time Seen by Provider: 12/22/24 14:08 Source: patient Mode of arrival: ambulatory Limitations: no limitations History of Present Illness HPI narrative: 39-year-old with a history of hypertension here with the complaints of abdominal cramping, dizziness, diarrhea for past 1 day. Patient states that his entire family had similar problems in the recent past. He denies any blood in his stool. No history of any recent antibiotic use MD elicited complaint: abdominal pain Onset (ago): day(s) (1) Quality: cramping Radiation: none Context: confirms sick contacts Associated symptoms: denies other symptoms Related Data Home Medications ?Medication ?Instructions ?Recorded ?Confirmed ?Last Taken ?Type omeprazole 40 mg capsule,delayed See Rx Instructions .Route .COMPLEX 08/27/21 03/30/24 Unknown History release lisinopril 10 mg tablet 30 mg PO DAILY 01/27/24 03/30/24 Unknown History Allergies Allergy/AdvReac Type Severity Reaction Status Date / Time No Known Drug Allergies Allergy Mild Unknown Verified 12/22/24 13:55 Review of Systems Review of Systems: All systems reviewed & are unremarkable except as noted in HPI and below Constitutional: Constitutional: Reports no additional constitutional complaints Eyes: Eyes: Reports no additional eye complaints ENT: Reports system reviewed and no additional complaints, except as documented Cardiovascular: Cardiovascular: Reports no additional cardiovascular complaints Respiratory: Respiratory: Reports no additional respiratory complaints Gastrointestinal: Gastrointestinal: Reports as per HPI Musculoskeletal: Musculoskeletal: Reports no additional musculoskeletal complaints Neurologic: Reports system reviewed and no additional complaints, except as documented PMFSH Past Medical History Medical History Obesity Dizziness Acute upper respiratory infection, unspecified GARRETT (generalized anxiety disorder) Hypertension Surgical History Surgical History No pertinent past surgical history Social History Social History Smoking status: Never smoker Tobacco type: smokeless tobacco Smokeless tobacco user: chewing tobacco Second hand tobacco smoke exposure: Yes Smoking end date: 11/29/11 Alcohol intake: current Exam Narrative: GENERAL: Well-appearing, well-nourished, and in no acute distress. HEAD: Normocephalic, atraumatic. EYES: PERRLA and EOMI. ENT: Nares clear, no rhinorrhea or epistaxis. Mucous membranes moist. NECK: Supple. CHEST: Clear to auscultation. No respiratory distress. HEART: Regular rate and rhythm. No murmur heard. Normal peripheral pulses. ABDOMEN: Soft, nontender, nondistended, normal active bowel sounds. EXTREMITIES: Normal range of motion. No edema. SKIN: Warm, dry, no rash. NEURO: No focal deficits. Alert and oriented x3. PSYCH: Normal mood and affect. Course Course Emergency Course: Patient feeling much better after IV fluids. I did inform him about the lab work. Advised him to drink more fluids as tolerated Vital Signs Vital signs: Vital Signs Temperature 36.3 C L 12/22/24 13:50 Pulse Rate 87 12/22/24 13:50 Respiratory Rate 17 12/22/24 13:50 Pulse Oximetry 100 12/22/24 13:50 Oxygen Delivery Room Air 12/22/24 13:50 Temperature 36.3 C L 12/22/24 13:50 Pulse Rate 100 12/22/24 14:17 Respiratory Rate 17 12/22/24 13:50 Blood Pressure 124/63 12/22/24 14:17 Pulse Oximetry 100 12/22/24 13:50 Oxygen Delivery Room Air 12/22/24 13:50 MDM - Abdominal Pain Lab Data 12/22/24 14:02 12/22/24 14:02 Labs: Lab Results 12/22/24 Range/Units 14:02 WBC 14.5 H (4.5-10.0) K/mm3 RBC 5.45 (4.6-6.20) M/mm3 Hgb 16.5 (14.0-18.0) g/dL Hct 49.0 (42.0-52.0) % MCV 89.9 (80-100) fl MCH 30.3 (26-34) pg MCHC 33.7 (32-36) g/dl RDW 12.2 (11.5-14.5) % Plt Count 285 (150-375) k/mm3 MPV 10.1 (7.4-10.4) fl Immature Gran % (Auto) Not Reportable Neut % (Auto) Not Reportable Lymph % (Auto) Not Reportable [place] % (Auto) Not Reportable Eos % (Auto) Not Reportable Baso % (Auto) Not Reportable Lymph # (Auto) Not Reportable [place] # (Auto) Not Reportable Eos # (Auto) Not Reportable Baso # (Auto) Not Reportable Abs Immat Gran (auto) Not Reportable Absolute Neuts (auto) Not Reportable Absolute Nucleated RBC Not Reportable Total Counted 100 Neutrophils % (Manual) 87 H (46-73) % Band Neutrophils % 5 (0-6) % Lymphocytes % (Manual) 3.0 L (18-44) % Monocytes % (Manual) 4 (3-9) % Eosinophils % (Manual) 1 (0-4) % Nucleated RBC % Not Reportable Abs Neuts (Manual) 13.34 H (1.3-6.7) K/mm3 Abs Lymphs (Manual) 0.43 L (1.1-4.5) K/mm3 Abs Monocytes (Manual) 0.58 (0.1-0.90) K/mm3 Absolute Eos (Manual) 0.14 (0.02-0.50) K/mm3 Platelet Estimate Adequate (Adequate) Clumped Platelets Present Schistocytes None seen Sodium 136 L (137-145) mmol/L Potassium 5.1 H (3.4-5.0) mmol/L Chloride 104 (98-107) mmol/L Carbon Dioxide 24 (22-30) mmol/L Anion Gap 8 (4-12) mmol/L BUN 18 (9-20) mg/dL Creatinine 1.11 (0.7-1.3) mg/dL Estim Creat Clear Calc 98 ml/min Estimated GFR > 60 (59 - ) Glucose 115 H (65-110) mg/dL Calcium 8.8 (8.4-10.2) mg/dL Total Bilirubin 1.4 H (0.2-1.3) mg/dL AST 30 (17-59) U/L ALT 26 (6-50) U/L Alkaline Phosphatase 89 (38-126) U/L Total Protein 7.0 (6.3-8.2) g/dL Albumin 4.1 (3.5-5.1) g/dL Lipase 89 (23-300) U/L Discharge Plan Discharge Clinical Impression: Enteritis, Dehydration Patient Disposition: Home, Self-Care Condition: Stable Instructions: Gastroenteritis (DC) Patient Language: Vincentian Prescriptions: New ondansetron 4 mg tablet,disintegrating 4 mg PO Q6-8H PRN (Reason: nausea and vomiting) Qty: 14 0RF No Action omeprazole 40 mg capsule,delayed release(DR/EC) See Rx Instructions .ROUTE .COMPLEX Rx Instructions: daily amoxicillin-pot clavulanate [Augmentin] 500-125 mg tablet 1 tablet PO TID Qty: 30 0RF lisinopril 10 mg tablet 30 mg PO DAILY Rx Instructions: TAKE 1 TABLET BY MOUTH EVERY DAY Must have appt before next refill paroxetine HCl 10 mg tablet See Rx Instructions .ROUTE .COMPLEX Qty: 90 1RF Dose Instruction: TAKE 1 TABLET BY MOUTH EVERY DAY Rx Instructions: TAKE 1 TABLET BY MOUTH EVERY DAY Follow-up/Referrals: Riley,MD Kwadwo [Primary Care Provider] - Time of Disposition: 14:52
== END 2024-12-22 16:22 | disposition home or self-care (01) ==
PROVIDERS: Emergency Provider Family Medicine; PCP Family Medicine
DX: K52.9 Noninfective gastroenteritis and colitis, unspecified (principal); E86.0 Dehydration; I10 Essential (primary) hypertension; E66.9 Obesity, unspecified; Z68.32 Body mass index [BMI] 32.0-32.9, adult; F17.220 Nicotine dependence, chewing tobacco, uncomplicated; Z79.899 Other long term (current) drug therapy
CPT/HCPCS: 36415; 80053; 83690; 85025; 93005; 96360; 99283; J7030

== ENCOUNTER 2025-02-28 13:10 | Outpatient (CLI) | payer OTHER, SELFPAY ==
--- NOTE | ~2025-02-28 | CT_ITS ---
EXAMINATION: CT abdomen pelvis w con DATE: 02/28/2025 13:55 INDICATION: Left lower quadrant abdominal pain and bloating. TECHNIQUE: Computed tomography (CT) of the abdomen and pelvis was performed with 100 mL Omnipaque-350 intravenous contrast. Automated exposure control and iterative reconstruction technique were employe d. The dose-length product was 1151.01 mGy-cm. COMPARISON: 03/15/2024 FINDINGS: Visualized lung bases are clear. Heart size is normal. No pericardial or pleural effusion. Subcentime ter cyst at the dome of the liver. Gallbladder, spleen, pancreas, bilateral adrenal glands and kidney s are normal. Bowels including the appendix are normal. Bladder is normal. No free intraperitoneal ga s or fluid. No pathologically enlarged abdominal or pelvic lymphadenopathy. Mild lumbar and lower tho racic spondylosis. Chronic mild anterior wedging at T11 and minimal at T12. IMPRESSION: 1. No acute intra-abdominal/pelvic process. Reviewed, dictated and finalized at location A.
[2025-02-28 13:37] LABS: Estimated Glomerular Filt Rate > 60
--- OUTSIDE RECORDS SUMMARY | 2025-02-28 14:32 | XMS_ITS | Encounter Summary ---
Author Organization [facility] Address [facility] [place] [address] Care Team Providers Care Line Welder Name Role Phone Vijay Campa MD Primary Care Provider [phone] Kwadwo Lin MD Primary Care Provider [phone] Encounter Details Date Type Department Care Team (Late st Contact Info) Description 05/06/2019 Abstract SFL CONVERSION [address] [address] , Generic Conversion, Social History Tobacco Use Types Packs/Day Years Used Date Smoking Tobacco: Never Assessed Sex and Gender Information Value Date Recorded Sex Assigned at Not on file 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
--- OUTSIDE RECORDS SUMMARY | 2025-02-28 14:32 | XMS_ITS | CONTINUITY OF CARE DOCUMENT ---
Author Name rob rivas Address Unknown Organization [facility] Address [address] [place] [address] Phone [phone] Care Team Providers Care Disposition Clerk Name Role Phone Solitario Donis MD Unavailable CARLA CASTANEDA MD Unavailable CARLA CASTANEDA MD Unavailable PROBLEMS Condition Status Date Provider Notes CHEST PAIN-TYPE TO BE DETERMINED active Paul Statno TOBACCO ABUSE active Solitario Donis MD ENCOUNTERS Date Type Provider Location Encounter Diagnosis - In-person encounter Office Visit Solitario Donis MD [place] Office - In-person encounter Office Visit Solitario Donis MD [facility] Office TOBACCO ABUSE VITAL SIGNS Date Observation Value Provider blood pressure, diastolic 84 mm[Hg] Troy Manning blood pressure, systolic 154 mm[Hg] Codie Manning pulse rate 79 /min Paulina Manning oxygen saturation, oximetry 98 % Paulina Manning respiratory rate E&M 16 /min Paulina Manning weight E&M 198 [lb_av] Paulina Manning blood pressure, diastolic, left arm 88 mm [Hg] Shea Cintron blood pressure, systolic, left arm 138 mm [Hg] Shea Cintron blood pressure, diastolic, right arm 78 m m[Hg] Shea Cintron blood pressure, systolic, right arm 126 m m[Hg] Shea Cintron blood pressure, diastolic 78 mm[Hg] Al tomas Abdulaziz blood pressure, systolic 126 mm[Hg] Adele gutiérrez Abdulaziz pulse rate 75 /min Shea Cintron oxygen saturation, oximetry 99 % Shea Cintron respiratory rate E&M 16 /min Shea Cintron weight E&M 197.6 [lb_av] Shea Cintron ALLERGIES No Known Drug Allergies HISTORY OF MEDICATION USE Medication Status Instructions Dates Provider Indications Com ments XANAX TABLET active 2 tablets once daily Shea Cintron SOCIAL HISTORY Date Observation Value Provider smoking/tobacco cess ation, patient education and counseling yes Jaron Young RN social history reviewed E&M reviewed Jaron Young RN social history E&M Marital Statu s: L young with family/friends E thnicity: Solitario Donis MD smoking/tobacco cess ation, patient education and counseling yes Solitario Donis MD cigarette use 10 Solitario Barnhart D social history reviewed E&M reviewed Solitario Donis MD physical exercise, f requency, days per week no [employer] caffeine use, averag e drinks per day no [employer] alcohol use, average drinks per day social basis only [employer] number of years as a smoker 10 years or m ore [facility] status [facility] MENTAL STATUS Date Observation Value Provider assessment of judgme nt and insight E&M Alert and oriented to time, place and person. Mood and affect are normal. Jaron Young RN assessment of judgme nt and insight E&M Alert and oriented to time, place and person. Mood and affect are normal. 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 B P today: 154/84 Prior BP: 126/78 (10/08/2010) Solitario Donis MD new patient:The Patient was reen couraged to stop smoking. 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 Solitario Donis MD new patient:i will r x a reg stress test and an echo. w e can have this done at [facility] as he lives in [place]. Solitario Donis MD Date Name Stress Test - Nuclea r Complete Echo Stress Test - Routin e
--- OUTSIDE RECORDS SUMMARY | 2025-02-28 14:32 | XMS_ITS | Clinical Summary ---
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 Gender Identity Not on file Sexual Orientation Not on file Plan of Treatment Health Maintenance Due Date Last Done Comments Annual Physical 1990 Hepatitis C 2005 DTaP, Tdap and Td Vaccines ( 1 - Tdap) 2006 Hepatitis B Vaccines (1 of 3 - 19+ 3-dose series) 2006 COVID-19 Vaccine (2023-2 5 season) 2024 HPV Vaccines Aged Out No longer eligi ble based on patient's age to complete this topic Meningococcal B Vaccine Aged Out No l onger eligible based on patient's age to complete this topic Meningococcal Vaccine Aged Out No mavis armando eligible based on patient's age to complete this topic Pneumococcal Vaccine: Pediat rics (0 to 5 Years) and At-Risk Patients (6 to 64 Years) Aged Out No longer eligible b ased on patient's age to complete this topic RSV Immunizations Under 20 Months Aged Out No longer eligible based on patient's age to complete this topic Care Teams Beamster Relationship Specialty Start Date End Date Kwadwo Lin MD [address] [place] [phone] PCP - General FAMILY PRACTICE 08/26/21
== END 2025-02-28 13:11 | disposition home or self-care (01) ==
LOC: CHSIMG 13:13
PROVIDERS: PCP Family Medicine; Visit Provider Family Medicine
DX: R10.9 Unspecified abdominal pain (principal)
CPT/HCPCS: 74177; Q9967

== ENCOUNTER 2025-05-25 17:12 | Emergency (ER) | payer OTHER, SELFPAY ==
[2025-05-25 17:12] VITALS: BP 139/87; PULSE 65; RESP 17; TEMP 36.8; O2SAT 98
--- NOTE | 2025-05-25 17:25 | ED_ITS ---
HPI - Weakness General Chief complaint: Environmental Exposure Stated complaint: dehydration, heat exposure. Time Seen by Provider: 05/25/25 17:16 Source: patient Mode of arrival: ambulatory Limitations: no limitations History of Present Illness HPI Narrative: patient is a 39-year-old male with generalized weakness and not feeling well for the past couple days. He is a wheat farmer. He has been working out in the hot sun for the past week. His urine is decreased and darker than normal. MD Complaint: generalized weakness Onset (ago): day(s) ( Three) Duration: constant Location: generalized Migration: none Severity: mild Severity scale (1-10): 2 Quality: aching Relieving factors: none Exacerbating factors: none Context: other ( patient has been working out in the hot sun for the past week and correlating with a generalized weakness and not feeling well) Associated symptoms: myalgias Related Data Home Medications ?Medication ?Instructions ?Recorded ?Confirmed ?Last Taken ?Type omeprazole 40 mg capsule,delayed See Rx Instructions .Route .COMPLEX 08/27/21 03/30/24 Unknown History release lisinopril 10 mg tablet 30 mg PO DAILY 01/27/24 03/30/24 Unknown History Allergies Allergy/AdvReac Type Severity Reaction Status Date / Time No Known Drug Allergies Allergy Mild Unknown Verified 05/25/25 17:24 Review of Systems 2 Review of Systems: All systems reviewed & are unremarkable except as noted in HPI and below Constitutional: Constitutional: Reports no additional constitutional complaints Eyes: Eyes: Reports no additional eye complaints ENT: Reports system reviewed and no additional complaints, except as documented Cardiovascular: Cardiovascular: Reports no additional cardiovascular complaints Respiratory: Respiratory: Reports no additional respiratory complaints Gastrointestinal: Gastrointestinal: Reports no additional gastrointestinal complaints Genitourinary: Genitourinary: Reports no additional male genitourinary complaints Musculoskeletal: Musculoskeletal: Reports no additional musculoskeletal complaints Integumentary/Breasts: Skin/Breast: Reports system reviewed and no additional complaints, except as docu Neurologic: Reports system reviewed and no additional complaints, except as documented Psychiatric: Psychiatric: Reports no additional psychiatric complaints Endocrine: Endocrine: Reports no additional endocrine complaints Hematologic/Lymphatic: Hematologic/Lymphatic: Reports no additional hematologic/lymphatic complaints Allergic/Immunologic: Allergic/Immunologic: Reports no additional allergic/immunologic complaints PMFSH Past Medical History Medical History Obesity Dizziness Acute upper respiratory infection, unspecified GARRETT (generalized anxiety disorder) Hypertension Surgical History Surgical History No pertinent past surgical history Social History Social History Smoking status: Never smoker Tobacco type: smokeless tobacco Smokeless tobacco user: chewing tobacco Second hand tobacco smoke exposure: Yes Smoking end date: 11/29/11 Alcohol intake: current Exam 2 Const: General: healthy appearing Nutritional Appearance: well nourished Orientation/consciousness: patient oriented x3 HENMT: Head: normal to inspection Ears: external ears normal F jeffrey/Nose/Sinus: Normal external nose present Eyes: Conjunctivae: conjunctivae normal Pupils: Equal, round and reactive pupils present EOM: EOMs intact bilaterally Neck: Neck: normal visual inspection Chest: Chest palpation & inspection: normal inspection of the chest Resp: Effort & Inspection: normal respiratory effort and not labored A uscultation: clear to auscultation bilaterally and no crackles Cardio: Rate: regular rate Rhythm: regular rhythm Heart sounds: no murmurs GI: Inspection: non-distended GI Palp: Yes Soft to palpation and No Tenderness to palpation present (GI) Auscultation: normal bowel sounds : General: Yes bladder normal to palpation Back/Spine/Pelvis: Back: no CVA tenderness Skin: General skin exam: normal color Rashes: no rashes Wounds: no wounds Neuro: General: patient oriented x3, moves all extremities, no meningeal signs, no focal motor deficits and CN's II-XI intact bilaterally Cranial nerves: Yes Nystagmus not present Speech: normal speech Gait exam (Neuro): Normal gait present Other: GCS is 15 Extrem: General: normal to inspection Psych: Mental Status: mental status grossly normal Affect: normal affect Attitude: cooperative Course Vital Signs Vital signs: Vital Signs Temperature 36.8 C 05/25/25 17:12 Pulse Rate 65 05/25/25 17:12 Respiratory Rate 17 05/25/25 17:12 Blood Pressure 139/87 05/25/25 17:12 Pulse Oximetry 98 05/25/25 17:12 Oxygen Delivery Room Air 05/25/25 17:12 Temperature 36.8 C 05/25/25 17:12 Pulse Rate 63 05/25/25 18:30 Respiratory Rate 17 05/25/25 18:30 Blood Pressure 144/92 H 05/25/25 18:30 Pulse Oximetry 98 05/25/25 18:30 Oxygen Delivery Room Air 05/25/25 18:30 MDM - Weakness MDM Narrative Medical decision making narrative: patient is a 39-year-old male with generalized weakness and not feeling well for the past 3 days after working in the hot sun. Lab Data Attestation: I reviewed the patient's lab results. 05/25/25 17:38 05/25/25 17:38 Labs: Lab Results 05/25/25 05/25/25 Range/Units 17:38 17:40 WBC 10.5 (4.8-10.8) K/mm3 RBC 5.02 (4.70-6.10) M/mm3 Hgb 15.3 (14.0-18.0) g/dL Hct 44.7 (40.0-54.0) % MCV 89.0 (78.0-102.0) fL MCH 30.5 (27.0-31.0) pg MCHC 34.2 (32-36) g/dL RDW 12.3 (11.6-14.4) % Plt Count 304 (150-420) K/mm3 MPV 10.0 (8.7-11.0) fl Immature Gran % (Auto) 1.6 H (0.0-0.0) % Neut % (Auto) 66.3 (50.0-70.0) % Lymph % (Auto) 19.8 (18.0-42.0) % [place] % (Auto) 10.0 (2.0-11.0) % Eos % (Auto) 1.4 (1.0-6.0) % Baso % (Auto) 0.9 (0.0-1.0) % Lymph # (Auto) 2.09 (1.10-4.50) K/mm3 [place] # (Auto) 1.05 H (0.10-0.90) K/mm3 Eos # (Auto) 0.15 (0.02-0.50) K/mm3 Baso # (Auto) 0.10 (0.00-0.10) K/mm3 Abs Immat Gran (auto) 0.17 H (0.00-0.00) K/mm3 Absolute Neuts (auto) 6.98 (1.70-7.20) K/mm3 Absolute Nucleated RBC 0.00 (0.00-0.00) K/mm3 Nucleated RBC % 0.0 (0-0.0) % Sodium 135 L (137-145) mmol/L Potassium 4.3 (3.4-5.0) mmol/L Chloride 104 (98-107) mmol/L Carbon Dioxide 23 (22-30) mmol/L Anion Gap 8 (4-12) mmol/L BUN 20 (9-20) mg/dL Creatinine 0.99 (0.7-1.3) mg/dL Estim Creat Clear Calc 113 ml/min Estimated GFR > 60 (59 - ) Glucose 89 (65-110) mg/dL Calculated Osmolality 281 L (285-295) mOsm/kg Lactic Acid 1.0 (0.4-2.0) mmol/L Calcium 8.8 (8.4-10.2) mg/dL Magnesium 1.8 Cancelled (1.6-2.3) mg/dL Total Bilirubin 0.9 (0.2-1.3) mg/dL AST 29 (17-59) U/L ALT 28 (6-50) U/L Alkaline Phosphatase 95 (38-126) U/L Total Creatine Kinase 141 (55-170) U/L Total Protein 7.3 (6.3-8.2) g/dL Albumin 4.3 (3.5-5.1) g/dL Discharge Plan Discharge Clinical Impression: Acute dehydration Patient Disposition: Home Condition: Stable Instructions: Dehydration (ED) Patient Language: Emirati Prescriptions: No Action omeprazole 40 mg capsule,delayed release(DR/EC) See Rx Instructions .ROUTE .COMPLEX Rx Instructions: daily amoxicillin-pot clavulanate [Augmentin] 500-125 mg tablet 1 tablet PO TID Qty: 30 0RF lisinopril 10 mg tablet 30 mg PO DAILY Rx Instructions: TAKE 1 TABLET BY MOUTH EVERY DAY Must have appt before next refill ondansetron 4 mg tablet,disintegrating 4 mg PO Q6-8H PRN (Reason: nausea and vomiting) Qty: 14 0RF paroxetine HCl 10 mg tablet See Rx Instructions .ROUTE .COMPLEX Qty: 90 1RF Dose Instruction: TAKE 1 TABLET BY MOUTH EVERY DAY Rx Instructions: TAKE 1 TABLET BY MOUTH EVERY DAY Follow-up/Referrals: Riley,MD Kwadwo [Primary Care Provider] - Time of Disposition: 19:19
[2025-05-25 17:30] VITALS: BP 135/74; PULSE 64; RESP 17; O2SAT 97
[2025-05-25 17:43] LABS: Basophils Percent Auto 0.9 % (0.0-1.0); Eosinophils Absolute Auto 0.15 K/mm3 (0.02-0.50); Eosinophils Percent Auto 1.4 % (1.0-6.0); Hematocrit 44.7 % (40.0-54.0); Hemoglobin 15.3 g/dL (14.0-18.0); Immature Granulocyte Absolute 0.17 K/mm3 (0.00-0.00); Immature Granulocyte Percent A 1.6 % (0.0-0.0); Lymphocytes Absolute Auto 2.09 K/mm3 (1.10-4.50); Lymphocytes Percent Auto 19.8 % (18.0-42.0); Mean Corpuscular HGB Conc 34.2 g/dL (32-36); Mean Corpuscular Hemoglobin 30.5 pg (27.0-31.0); Monocytes Absolute Auto 1.05 K/mm3 (0.10-0.90); Neutrophils Absolute Auto 6.98 K/mm3 (1.70-7.20); Neutrophils Percent Auto 66.3 % (50.0-70.0); Platelet Count Result 304 K/mm3 (150-420); Red Blood Count 5.02 M/mm3 (4.70-6.10); Red Cell Distribution Width 12.3 % (11.6-14.4); White Blood Count 10.5 K/mm3 (4.8-10.8)
[2025-05-25] MEDS: SODIUM CHLORIDE 0.9% IV 1,000 ML 999 ML IV CONT (17:55)
[2025-05-25 18:00] VITALS: BP 130/82; PULSE 57; RESP 17; O2SAT 97
[2025-05-25 18:24] LABS: Alanine Aminotransferase 28 U/L (6-50); Albumin Level 4.3 g/dL (3.5-5.1); Alkaline Phosphatase 95 U/L (38-126); Anion Gap 8 mmol/L (4-12); Aspartate Amino Transferase 29 U/L (17-59); Bilirubin,Total 0.9 mg/dL (0.2-1.3); Blood Urea Nitrogen 20 mg/dL (9-20); Calcium 8.8 mg/dL (8.4-10.2); Carbon Dioxide 23 mmol/L (22-30); Chloride 104 mmol/L (98-107); Creatine Kinase 141 U/L (55-170); Estimated CRCL calculation 113 ml/min; Estimated Glomerular Filt Rate > 60; Glucose 89 mg/dL (65-110); Magnesium 1.8 mg/dL (1.6-2.3); Osmolality Calculated 281 mOsm/kg (285-295); Potassium 4.3 mmol/L (3.4-5.0); Sodium 135 mmol/L (137-145); Total Protein 7.3 g/dL (6.3-8.2)
[2025-05-25 18:30] VITALS: BP 144/92; PULSE 63; RESP 17; O2SAT 98
[2025-05-25] MEDS: LACTATED RINGERS 1,000 ML 999 ML IV CONT (18:46)
--- NOTE | 2025-05-25 19:01 | PC.NURSE ---
patient report received from DAYO Mazariegos for continuation of care on rn shift mgr.
[2025-05-25 19:32] VITALS: BP 124/91; PULSE 69; RESP 18; TEMP 36.3; O2SAT 100
== END 2025-05-25 19:40 | disposition home or self-care (01) ==
PROVIDERS: Emergency Provider Emergency Medicine; PCP Family Medicine
DX: E86.0 Dehydration (principal); I10 Essential (primary) hypertension
CPT/HCPCS: 36415; 80053; 82550; 83605; 83735; 85025; 96360; 96361; 99283; J7030; J7120

== ENCOUNTER 2025-06-21 16:47 | Emergency (ER) | payer OTHER, SELFPAY ==
[2025-06-21 16:47] VITALS: BP 137/86; PULSE 75; RESP 18; TEMP 36.5; O2SAT 98
--- OUTSIDE RECORDS SUMMARY | 2025-06-21 16:52 | XMS_ITS | Clinical Summary ---
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 Gender Identity Not on file Sexual Orientation Not on file Plan of Treatment Health Maintenance Due Date Last Done Comments Annual Physical 1990 Hepatitis C 2005 DTaP, Tdap and Td Vaccines ( 1 - Tdap) 2006 Hepatitis B Vaccines (1 of 3 - 19+ 3-dose series) 2006 HPV Vaccines (1 - 3-dose SCD M series) 2014 COVID-19 Vaccine (1 - 2023-2 5 season) 2024 Meningococcal B Vaccine Aged Out No l onger eligible based on patient's age to complete this topic Meningococcal Vaccine Aged Out No mavis armando eligible based on patient's age to complete this topic Pneumococcal Vaccine: Pediat rics (0 to 5 Years) and At-Risk Patients (6 to 49 Years) Aged Out No longer eligible b ased on patient's age to complete this topic RSV Immunizations Under 20 Months Aged Out No longer eligible based on patient's age to complete this topic Care Teams School Photographer Relationship Specialty Start Date End Date Kwadwo Lin MD [address] [place] [phone] PCP - General FAMILY PRACTICE 08/26/21
--- OUTSIDE RECORDS SUMMARY | 2025-06-21 16:52 | XMS_ITS | Encounter Summary ---
Author Organization [facility] Address [facility] [place] [address] Care Team Providers Care Fine Dining Server Name Role Phone Vijay Campa MD Primary Care Provider [phone] Kwadwo Lin MD Primary Care Provider [phone] Encounter Details Date Type Department Care Team (Late st Contact Info) Description 05/06/2019 Abstract SFL CONVERSION [address] [place] [address] , Generic Conversion, Social History Tobacco Use Types Packs/Day Years Used Date Smoking Tobacco: Never Assessed Sex and Gender Information Value Date Recorded Sex Assigned at Not on file 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
--- NOTE | 2025-06-21 17:12 | ED.ALLEREA ---
HPI - Allergic Reaction General Chief complaint: Ear Stated complaint: wasp sting Time Seen by Provider: 06/21/25 17:03 Source: patient and family Mode of arrival: ambulatory Limitations: no limitations History of Present Illness HPI narrative: Patient is a 39-year-old male with a right ear inflammation/ swelling after a wasp bite 30 minutes ago. He had a wasp bite couple weeks ago without any reaction. It appears he has developed an allergy at this time. Patient said he has Benadryl at home and did not need any at this time. He was mostly concerned about the swelling of the right ear. No tingling or numbness or swelling of the tongue lips or throat. MD complaint: allergic reaction Onset (ago): minute(s) ( Thirty) Exposure: insect bite ( wasp) Symptoms: other ( right ear swelling; bite was on the right ear) Severity: moderate Treatment prior to arrival: none Previous Allergic Reaction History: none Related Data Home Medications ?Medication ?Instructions ?Recorded ?Confirmed ?Last Taken ?Type omeprazole 40 mg capsule,delayed See Rx Instructions .Route .COMPLEX 08/27/21 03/30/24 Unknown History release lisinopril 10 mg tablet 30 mg PO DAILY 01/27/24 03/30/24 Unknown History Allergies Allergy/AdvReac Type Severity Reaction Status Date / Time No Known Drug Allergies Allergy Mild Unknown Verified 06/21/25 16:52 Review of Systems Review of Systems: All systems reviewed & are unremarkable except as noted in HPI and below Constitutional: Constitutional: Reports no additional constitutional complaints Eyes: Eyes: Reports no additional eye complaints ENT: Reports system reviewed and no additional complaints, except as documented Cardiovascular: Cardiovascular: Reports no additional cardiovascular complaints Respiratory: Respiratory: Reports no additional respiratory complaints Gastrointestinal: Gastrointestinal: Reports no additional gastrointestinal complaints Genitourinary: Genitourinary: Reports no additional male genitourinary complaints Musculoskeletal: Musculoskeletal: Reports no additional musculoskeletal complaints Integumentary/Breasts: Skin/Breast: Reports system reviewed and no additional complaints, except as docu Neurologic: Reports system reviewed and no additional complaints, except as documented Psychiatric: Psychiatric: Reports no additional psychiatric complaints Endocrine: Endocrine: Reports no additional endocrine complaints Hematologic/Lymphatic: Hematologic/Lymphatic: Reports no additional hematologic/lymphatic complaints Allergic/Immunologic: Allergic/Immunologic: Reports no additional allergic/immunologic complaints [facility] Past Medical History Medical History Obesity Dizziness Acute upper respiratory infection, unspecified GARRETT (generalized anxiety disorder) Hypertension Surgical History Surgical History No pertinent past surgical history Social History Social History Smoking status: Never smoker Tobacco type: smokeless tobacco Smokeless tobacco user: chewing tobacco Second hand tobacco smoke exposure: Yes Smoking end date: 11/29/11 Alcohol intake: current Exam Const: General: healthy appearing Nutritional Appearance: well nourished Orientation/consciousness: patient oriented x3 HENMT: Head: normal to inspection Ears: external ears normal Face/Nose/Sinus: Normal external nose present Eyes: Conjunctivae: conjunctivae normal Pupils: Equal, round and reactive pupils present EOM: EOMs intact bilaterally Neck: Neck: normal visual inspection Chest: Chest palpation & inspection: normal inspection of the chest Resp: Effort & Inspection: normal respiratory effort and not labored Auscultation: clear to auscultation bilaterally and no crackles Cardio: Rate: regular rate Rhythm: regular rhythm Heart sounds: no murmurs GI: Inspection: non-distended GI Palp: Yes Soft to palpation and No Tenderness to palpation present (GI) Auscultation: normal bowel sounds : General: Yes bladder normal to palpation Back/Spine/Pelvis: Back: no CVA tenderness Skin: General skin exam: No normal color Rashes: no rashes Wounds: no wounds Other: right ear is generalized swelling with erythema / redness after insect wasp bite 30 minutes ago; good blood flow to the ear and no signs of impeded blood flow Neuro: General: patient oriented x3, moves all extremities, no meningeal signs, no focal motor deficits and CN's II-XI intact bilaterally Extrem: General: normal to inspection Psych: Mental Status: mental status grossly normal Affect: normal affect Attitude: cooperative Course Vital Signs Vital signs: Vital Signs Temperature 36.5 C 06/21/25 16:47 Pulse Rate 75 06/21/25 16:47 Respiratory Rate 18 06/21/25 16:47 Blood Pressure 137/86 06/21/25 16:47 Pulse Oximetry 98 06/21/25 16:47 Oxygen Delivery Room Air 06/21/25 16:47 Temperature 36.5 C 06/21/25 16:47 Pulse Rate 75 06/21/25 16:47 Respiratory Rate 18 06/21/25 16:47 Blood Pressure 137/86 06/21/25 16:47 Pulse Oximetry 98 06/21/25 16:47 Oxygen Delivery Room Air 06/21/25 16:47 MDM - Allergic Reaction MDM Narrative Medical decision making narrative: patient is a 39-year-old male with allergic reaction to his right ear with a wasp bite 30 minutes ago. I suggested cold compress as well as Benadryl. I will send EpiPen to the pharmacy. Discharge Plan Discharge Clinical Impression: Allergic reaction to wasp sting Patient Disposition: Home Condition: Stable Instructions: General Allergic Reaction (ED) Patient Language: Faroese Prescriptions: New epinephrine [EpiPen] 0.3 mg/0.3 mL auto-injector 0.3 mg IM ONCE Qty: 1 0RF Rx Instructions: as a single dose; may repeat once No Action omeprazole 40 mg capsule,delayed release(DR/EC) See Rx Instructions .ROUTE .COMPLEX Rx Instructions: daily amoxicillin-pot clavulanate [Augmentin] 500-125 mg tablet 1 tablet PO TID Qty: 30 0RF lisinopril 10 mg tablet 30 mg PO DAILY Rx Instructions: TAKE 1 TABLET BY MOUTH EVERY DAY Must have appt before next refill ondansetron 4 mg tablet,disintegrating 4 mg PO Q6-8H PRN (Reason: nausea and vomiting) Qty: 14 0RF paroxetine HCl 10 mg tablet See Rx Instructions .ROUTE .COMPLEX Qty: 90 1RF Dose Instruction: TAKE 1 TABLET BY MOUTH EVERY DAY Rx Instructions: TAKE 1 TABLET BY MOUTH EVERY DAY Follow-up/Referrals: Riley,MD Kwadwo [Primary Care Provider] - Time of Disposition: 17:05
[2025-06-21 17:24] VITALS: BP 137/86; PULSE 75; RESP 18; TEMP 36.5; O2SAT 98
== END 2025-06-21 17:24 | disposition home or self-care (01) ==
LOC: CHSED 17:08
PROVIDERS: Emergency Provider Emergency Medicine; PCP Family Medicine
DX: T63.441A Toxic effect of venom of bees, accidental (unintentional), initial encounter (principal); H60.8X1 Other otitis externa, right ear
CPT/HCPCS: 99283

== ENCOUNTER 2025-06-22 08:01 | Emergency (ER) | payer OTHER, SELFPAY ==
[2025-06-22 08:01] VITALS: BP 134/84; PULSE 74; RESP 16; TEMP 36.3; O2SAT 98
--- NOTE | 2025-06-22 08:05 | ED_ITS ---
HPI - Skin/Abscess/Foreign Bdy General Chief complaint: Ear Stated complaint: wasp sting Time Seen by Provider: 06/22/25 08:05 Source: patient Mode of arrival: ambulatory Limitations: no limitations History of Present Illness HPI narrative: 9 old male with a history hypertension, generalized anxiety disorder presented to the ED after of wasp bite at around 5:00 p.m.. The patient presented to the ED with right ear swelling. The patient received EpiPen and advised Benadryl. Today the patient presents to the ED with -- right ear pinna swelling with redness and itching. No fever or chills. No throat swelling, shortness of breath, lightheadedness or abdominal pain. No itchy rash elsewhere in the body. complaint: rash Onset (ago): day(s) ( One day) Tetanus up to date: yes Location: L foot ( pain of the right ear) Severity: mild Quality: pruritic Relieving factors: none Exacerbating factors: none Context: witnessed insect bite Associated symptoms: denies other symptoms Treatments prior to arrival: none Related Data Home Medications ?Medication ?Instructions ?Recorded ?Confirmed ?Last Taken ?Type omeprazole 40 mg capsule,delayed See Rx Instructions .Route .COMPLEX 08/27/21 03/30/24 Unknown History release lisinopril 10 mg tablet 30 mg PO DAILY 01/27/24 03/30/24 Unknown History Allergies Allergy/AdvReac Type Severity Reaction Status Date / Time No Known Drug Allergies Allergy Mild Unknown Verified 06/22/25 08:04 Review of Systems Review of Systems: All systems reviewed & are unremarkable except as noted in HPI and below PMFSH Past Medical History Medical History Obesity Dizziness Acute upper respiratory infection, unspecified GARRETT (generalized anxiety disorder) Hypertension Surgical History Surgical History No pertinent past surgical history Social History Social History Smoking status: Never smoker Tobacco type: smokeless tobacco Smokeless tobacco user: chewing tobacco Second hand tobacco smoke exposure: Yes Smoking end date: 11/29/11 Alcohol intake: current Exam Narrative: vitals are stable Const: General: healthy appearing and no acute distress Nutritional Appearance: well nourished Orientation/consciousness: patient oriented x3 Limitations: no limitations HENMT: Head: normal to inspection Ears: external ears normal ( pain of the right ear is red and swollen. No tenderness. No regional lym), TM's normal bilaterally, EAC's normal and Abnormal EAC present Face/Nose/Sinus: Normal ex ternal nose present Face and sinus: normal facial exam Mouth: Yes Normal oral and palatal mucosa present Throat: posterior oropharynx normal Eyes: Conjunctivae: conjunctivae normal Pupils: Equal, round and reactive pupils present EOM: EOMs intact bilaterally Direct Ophthalmoscopy: no photophobia Neck: Neck: normal visual inspection, no lymphadenopathy and no meningeal signs Chest: Chest palpation & inspection: normal inspection of the chest Resp: Effort & Inspection: normal respiratory effort Auscultation: clear to auscultation bilaterally Cardio: Rate: regular rate Rhythm: regular rhythm GI: Auscultation: normal bowel sounds Other: No tenderness/rigidity / rebound. : General: Yes no CVA tenderness Back/Spine/Pelvis: Back: no CVA tenderness Skin: General skin exam: normal color Other: Pain of the right ear is red and swollen. Itchy. Nonten Neuro: General: patient oriented x3, moves all extremities, no meningeal s igns, no focal motor deficits and CN's II-XI intact bilaterally Speech: normal speech Extrem: General: normal to inspection and no clubbing, cyanosis or edema Psych: Mental Status: mental status grossly normal Affect: normal affect Attitude: cooperative Course Course Emergency Course: wasp sting right ear right ear swelling with pruritus Vital Signs Vital signs: Vital Signs Temperature 36.3 C L 06/22/25 08:01 Pulse Rate 74 06/22/25 08:01 Respiratory Rate 16 06/22/25 08:01 Blood Pressure 134/84 06/22/25 08:01 Pulse Oximetry 98 06/22/25 08:01 Oxygen Delivery Room Air 06/22/25 08:01 Temperature 36.3 C L 06/22/25 08:01 Pulse Rate 74 06/22/25 08:01 Respiratory Rate 16 06/22/25 08:01 Blood Pressure 134/84 06/22/25 08:01 Pulse Oximetry 98 06/22/25 08:01 Oxygen Delivery Room Air 06/22/25 08:01 MDM - Skin/Abscess/Foreign Bdy MDM Narrative Medical decision making narrative: wasp sting allergic reaction right ear Differential Diagnosis Differential diagnosis: Likely urticaria and allergic reaction to drug Medical Records Attestation: I reviewed the patient's medical records. Discharge Plan Discharge Clinical Impression: Wasp sting, Inflammation of the external ear Patient Disposition: Home Condition: Stable Instructions: Antibiotic Form, Insect Bite or Sting (ED) Patient Language: Luxembourgish Prescriptions: No Action omeprazole 40 mg capsule,delayed release(DR/EC) See Rx Instructions .ROUTE .COMPLEX Rx Instructions: daily amoxicillin-pot clavulanate [Augmentin] 500-125 mg tablet 1 tablet PO TID Qty: 30 0RF lisinopril 10 mg tablet 30 mg PO DAILY Rx Instructions: TAKE 1 TABLET BY MOUTH EVERY DAY Must have appt before next refill epinephrine [EpiPen] 0.3 mg/0.3 mL auto-injector 0.3 mg IM ONCE Qty: 1 0RF Rx Instructions: as a single dose; may repeat once ondansetron 4 mg tablet,disintegrating 4 mg PO Q6-8H PRN (Reason: nausea and vomiting) Qty: 14 0RF paroxetine HCl 10 mg tablet See Rx Instructions .ROUTE .COMPLEX Qty: 90 1RF Dose Instruction: TAKE 1 TABLET BY MOUTH EVERY DAY Rx Instructions: TAKE 1 TABLET BY MOUTH EVERY DAY Follow-up/Referrals: Riley,MD Kwadwo [Primary Care Provider] - Time of Disposition: 08:18
--- OUTSIDE RECORDS SUMMARY | 2025-06-22 08:21 | XMS_ITS | Clinical Summary ---
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
--- OUTSIDE RECORDS SUMMARY | 2025-06-22 08:21 | XMS_ITS | Encounter Summary ---
Author Organization [facility] Address [facility] [place] [address] Care Team Providers Care Key Account Executive Name Role Phone Vijay Campa MD Primary Care Provider [phone] Kwadwo Lin MD Primary Care Provider [phone] Encounter Details Date Type Department Care Team (Late st Contact Info) Description 05/06/2019 Abstract SFL CONVERSION [address] [address] , Generic Conversion, Social History Tobacco Use Types Packs/Day Years Used Date Smoking Tobacco: Never Assessed Sex and Gender Information Value Date Recorded Sex Assigned at Not on file 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
[2025-06-22 08:40] VITALS: BP 134/84; PULSE 74; RESP 16; TEMP 36.3; O2SAT 98
== END 2025-06-22 08:40 | disposition home or self-care (01) ==
LOC: CHSED 08:20
PROVIDERS: Emergency Provider Internal Medicine Critical Care Medicine; PCP Family Medicine
DX: T63.461A Toxic effect of venom of wasps, accidental (unintentional), initial encounter (principal); I10 Essential (primary) hypertension
CPT/HCPCS: 96372; 99283; J2919

== ENCOUNTER 2025-10-31 18:48 | Emergency (ER) | payer OTHER, SELFPAY ==
--- OUTSIDE RECORDS SUMMARY | 2025-10-31 18:50 | XMS_ITS | Encounter Summary ---
Author Organization [facility] Address [facility] [place] [address] Care Team Providers Care Swatch Checker Name Role Phone Vijay Campa MD Primary Care Provider [phone] Kwadwo Lin MD Primary Care Provider [phone] Encounter Details Date Type Department Care Team (Late st Contact Info) Description 05/06/2019 Abstract SFL CONVERSION [address] [place] [address] , Generic Conversion, Social History Tobacco Use Types Packs/Day Years Used Date Smoking Tobacco: Never Assessed Sex and Gender Information Value Date Recorded Sex Assigned at Not on file 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
--- OUTSIDE RECORDS SUMMARY | 2025-10-31 18:50 | XMS_ITS | Clinical Summary ---
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 Gender Identity Not on file Sexual Orientation Not on file Plan of Treatment Health Maintenance Due Date Last Done Comments Annual Physical 1990 Hepatitis C 2005 DTaP, Tdap and Td Vaccines ( 1 - Tdap) 2006 Hepatitis B Vaccines (1 of 3 - 19+ 3-dose series) 2006 HPV Vaccines (1 - 3-dose SCD M series) 2014 COVID-19 Vaccine ( - 2024-2 6 season) 2025 Influenza Adult (#1) 2025 Hepatitis A Vaccines Aged Out No long er eligible based on patient's age to complete [...] age to complete this topic Care Teams Education Nurse Relationship Specialty Start Date End Date Kwadwo Lin MD [address] [place] [phone] PCP - General FAMILY PRACTICE 08/26/21
--- NOTE | 2025-10-31 19:00 | PC.NURSE ---
ASSUMED CARE. REPORT RECEIVED FROM NELI OSHEA
--- NOTE | 2025-10-31 19:05 | PC.NURSE ---
covid swab sent to lab
--- NOTE | 2025-10-31 19:06 | PC.NURSE ---
covid swab sent to lab
[2025-10-31 19:08] VITALS: BP 137/99; PULSE 84; RESP 18; TEMP 36.7; O2SAT 98
--- NOTE | 2025-10-31 19:12 | PC.NURSE ---
Handoff report given to DAYO Bernstein.
--- NOTE | 2025-10-31 19:13 | ED_ITS ---
HPI - URI/Sore Throat General Chief Complaint: Upper Respiratory Infection Stated Complaint: Sore throat, cough Time Seen by Provider: 10/31/25 19:12 Source: patient Mode of arrival: ambulatory Limitations: no limitations History of Present Illness HPI Narrative: Patient is a 40-year-old male with a cough and sore throat for the past week. MD elicited complaint: cough and sore throat Pertinent past history: other (Hypertension) Onset (ago): week(s) (1) Consistency: constant Severity: mild Pain scale (0-10): 1 Description of mucous: clear Able to tolerate fluids by mouth: Yes Exacerbating factors: nothing Relieving factors: nothing Context: sick contacts (Son is got the same symptoms) Associated symptoms: nasal congestion and sore throat Treatments prior to arrival: none Related Data Home Medications ?Medication ?Instructions ?Recorded ?Confirmed ?Last Taken ?Type lisinopril 10 mg tablet 30 mg PO DAILY 01/27/24 05/0 01/22 Unknown History paroxetine HCl 20 mg tablet mg PO 10/31/25 Unknown Hi story Allergies Allergy/AdvReac Type Severity Reaction Status Date / Time No Known Drug Allergies Allergy Mild Unknown Verified 10/31/25 19:07 Review of Systems Review of Systems: All systems reviewed & are unremarkable except as noted in HPI and below Constitutional: Constitutional: Reports no additional constitutional complaints Eyes: Eyes: Reports no additional eye complaints ENT: Reports system reviewed and no additional complaints, except as documented Cardiovascular: Cardiovascular: Reports no additional cardiovascular complaints Respiratory: Respiratory: Reports no additional respiratory complaints Gastrointestinal: Gastrointestinal: Reports no additional gastrointestinal complaints Genitourinary: Genitourinary: Reports no additional male genitourinary complaints Musculoskeletal: Musculoskeletal: Reports no additional musculoskeletal complaints Integumentary/Breasts: Skin/Breast: Reports system reviewed and no additional complaints, except as docu Neurologic: Reports system reviewed and no additional complaints, except as documented Psychiatric: Psychiatric: Reports no additional psychiatric complaints Endocrine: Endocrine: Reports no additional endocrine complaints Hematologic/Lymphatic: Hematologic/Lymphatic: Reports no additional hematolo gic/lymphatic complaints Allergic/Immunologic: Allergic/Immunologic: Reports no additional allergic/immunologic complaints PMFSH Past Medical History Medical History Obesity Dizziness Acute upper respiratory infection, unspecified GARRETT (generalized anxiety disorder) Hypertension Surgical History Surgical History No pertinent past surgical history Social History Social History Smoking status: Never smoker Tobacco type: smokeless tobacco Smokeless tobacco user: chewing tobacco Second hand tobacco smoke exposure: Yes Smoking end date: 11/29/11 Alcohol intake: current Exam Const: General: healthy appearing Nutritional Appearance: well nourished Orientation/consciousness: patient oriented x3 Limitations: no limitations HENMT: Head: normal to inspection Ears: external ears normal Face/Nose/Sinus: Normal external nose present Eyes: Conjunctivae: conjunctivae normal Pupils: Equal, round and reactive pupils present EOM: EOMs intact bilaterally Neck: Neck: normal visual inspection Chest: Chest palpation & inspection: normal inspection of the chest Resp: Effort & Inspection: normal respiratory effort and not labored Auscultation: clear to auscultation bilaterally and no crackles Cardio: Rate: regular rate Rhythm: regular rhythm Heart sounds: no murmurs GI: Inspection: non-distended GI Palp: Yes Soft to palpation and No Tenderness to palpation present (GI) Auscultation: normal bowel sounds : General: Yes bladder normal to palpation Back/Spine/Pelvis: Back: no CVA tenderness Skin: General skin exam: normal color Rashes: no rashes Wounds: no wounds Neuro: General: patient oriented x3, moves all extremities and no meningeal signs Extrem: General: normal to inspection, no clubbing, cyanosis or edema and no pedal edema Psych: Mental Status: mental status grossly normal Affect: normal affect Attitude: cooperative Course Vital Signs Vital signs: Vital Signs Temperature 36.7 C 10/31/25 19:08 Pulse Rate 84 10/31/25 19:08 Respiratory Rate 18 10/31/25 19:08 Blood Pressure 137/99 H 10/31/25 19:08 Pulse Oximetry 98 10/31/25 19:08 Oxygen Delivery Room Air 10/31/25 19:08 Temperature 36.7 C 10/31/25 19:08 Pulse Rate 84 10/31/25 19:08 Respiratory Rate 18 10/31/25 19:08 Blood Pressure 137/99 H 10/31/25 19:08 Pulse Oximetry 98 10/31/25 19:08 Oxygen Delivery Room Air 10/31/25 19:08 [facility] Narrative Medical decision making narrative: Patient is a 40-year-old male with a cough and congestion for the past week. P atient has viral syndrome like changes. No need for antibiotics. Differential Diagnosis Differential Diagnosis: Viral syndrome Lab Data [facility] Lab Attestation statement: I personally reviewed the patient's lab results. Labs: Lab Results 10/31/25 10/31/25 Range/Units 19:01 19:02 Influenza A (RT-PCR) Negative (Negative) Influenza B (RT-PCR) Negative (Negative) RSV (RT-PCR) Negative (Negative) SARS-CoV-2 RNA (RT-PCR) Negative (Negative) Group A Strep (PCR) Not detected (Negative) Discharge Plan Discharge Clinical Impression: Viral infection Patient Disposition: Home Condition: Stable Instructions: Viral Syndrome (ED) Patient Language: Frisian Prescriptions: No Action paroxetine HCl 20 mg tablet PO lisinopril 10 mg tablet 30 mg PO DAILY Rx Instructions: TAKE 1 TABLET BY MOUTH EVERY DAY Must have appt before next refill epinephrine [EpiPen] 0.3 mg/0.3 mL auto-injector 0.3 mg IM ONCE Qty: 1 0RF Rx Instructions: as a single dose; may repeat once Follow-up/Referrals: Riley,MD Kwadwo [Primary Care Provider, Family Practice] Time of Disposition: 20:11
--- OUTSIDE RECORDS SUMMARY | 2025-10-31 19:33 | XMS_ITS | Encounter Summary ---
Author Organization [facility] Address [facility] [place] [address] Care Team Providers Care Street Superintendent Name Role Phone Vijay Campa MD Primary Care Provider [phone] Kwadwo Lin MD Primary Care Provider [phone] Encounter Details Date Type Department Care Team (Late st Contact Info) Description 05/06/2019 Abstract SFL CONVERSION [address] [place] [address] , Generic Conversion, Social History Tobacco Use Types Packs/Day Years Used Date Smoking Tobacco: Never Assessed Sex and Gender Information Value Date Recorded Sex Assigned at Not on file 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
[2025-10-31 19:55] LABS: Influenza A QL RT-PCR Negative (Negative); Influenza B QL RT-PCR Negative (Negative); RSV RNA, RT-PCR Negative (Negative); SARS-CoV-2 RNA PCR Negative (Negative)
[2025-10-31 19:57] LABS: Strep Group A RT-PCR NOT DETECTED (Negative)
[2025-10-31 20:16] VITALS: BP 132/78; PULSE 80; RESP 18; O2SAT 100
== END 2025-10-31 20:16 | disposition home or self-care (01) ==
PROVIDERS: Emergency Provider Emergency Medicine; PCP Family Medicine
DX: B34.9 Viral infection, unspecified (principal); I10 Essential (primary) hypertension; Z20.822 Contact with and (suspected) exposure to COVID-19
CPT/HCPCS: 87637; 87651; 99283